=== PATIENT | male | born 1975 | race Hispanic/Latino ===

== ENCOUNTER 2018-09-28 14:36 | Inpatient (IN) | payer MEDICAID ==
[2018-09-28] MEDS ORDERED: Sodium Chloride 0.9% 1,000 ML IV STA ×3 (15:15→20:15)
--- NOTE | 2018-09-28 15:46 | ED PDOC ---
Arrival/HPI - General Historian: Patient - History of Present Illness Narrative History of Present Illness (Text): 09/28/18 15:47 43 year old male with PMH of alcohol abuse presents to the emergency department with sharp epigastric abdominal pain for 1 hour. It's constant, 8/10, no alleviating or worsening factors with no radiation. Pain is associated with coughing up blood, fever, chills, diarrhea. Patient has been drinking 6 beers and 1 pint of hard liquor daily for the past 25 years. He denied prior hospitalization related to alcohol intake. Patient reports dental surgery 1 month ago for tooth extraction and abscess drainage but he still experience dental pain. Time/Duration: 1 hour Symptom Onset: Sudden Symptom Course: Worsening Quality: Stabbing Severity Level: Severe Activities at Onset: Rest Context: Home <Grant Saleh - Last Filed: 09/28/18 15:42> <Alberto Mullins - Last Filed: 09/29/18 08:02> - General Chief Complaint: Chest Pain Time Seen by Provider: 09/28/18 14:58 Past Medical History - Provider Review Nursing Documentation Reviewed: Yes - Travel History Have you recently traveled outside [place] w/in the past 3 mons?: No - Past History Past History: No Previous - Infectious Disease Hx of Infectious Diseases: None - Past Medical History Past Medical History: No Previous - Cardiac Hx Cardiac Disorders: No - Pulmonary Hx Respiratory Disorders: No - Neurological Hx Neurological Disorder: No - HEENT Hx HEENT Disorder: No - Renal Hx Renal Disorder: No - Endocrine/Metabolic Hx Endocrine Disorders: No - Hematological/Oncological Hx Blood Disorders: No - Integumentary Hx Dermatological Disorder: No - Musculoskeletal/Rheumatological Hx Musculoskeletal Disorders: No - Gastrointestinal Hx Gastrointestinal Disorders: No - Genitourinary/Gynecological Hx Genitourinary Disorders: No - Psychiatric Hx Psychophysiologic Disorder: No Hx Substance Use: Yes - Surgical History Hx Orthopedic Surgery: Yes Other/Comment: dental surgery - Anesthesia Hx Anesthesia: Yes Hx Anesthesia Reactions: No Hx Malignant Hyperthermia: No <Grant Saleh - Last Filed: 09/28/18 15:42> Family/Social History Smoking Status: Heavy Smoker > 10 Cigarettes Daily Hx Alcohol Use: Yes Frequency of alcohol use: Daily Hx Substance Use: Yes Substance used: marijuana <Grant Saleh - Last Filed: 09/28/18 15:42> Family/Social History: Unknown Family HX <Alberto Mullins - Last Filed: 09/29/18 08:02> Allergies/Home Meds <Grant Saleh - Last Filed: 09/28/18 15:42> <Alberto Mullins - Last Filed: 09/29/18 08:02> Allergies/Adverse Reactions: Allergies No Known Allergies Allergy (Verified 09/28/18 15:02) Home Medications: Home Meds Medication Instructions Recorded Confirmed No Known Home Med 09/28/18 09/28/18 Review of Systems - Review of Systems Constitutional: Other (chills). absent: Fatigue, Night Sweats Eyes: absent: Vision Changes ENT: Other (left facial pain, dental pain). absent: Tinnitus, Sore Throat, Sinus Congestion Respiratory: Other (? hemoptysis, "spitting up blood"). absent: SOB, Cough Cardiovascular: absent: Chest Pain, Edema, Calf Pain Gastrointestinal: Nausea. absent: Abdominal Pain, Diarrhea, Hematochezia, Hematemesis Genitourinary Male: absent: Dysuria, Hematuria Musculoskeletal: absent: Back Pain Skin: Cellulitis. absent: Rash Neurological: absent: Headache, Dizziness, Seizure Endocrine: absent: Polyuria Hemo/Lymphatic: absent: Easy Bleeding Psychiatric: absent: Depression <Alberto Mullins - Last Filed: 09/29/18 08:02> Physical Exam Vital Signs Reviewed: Yes Vital Signs Temp Pulse Resp BP Pulse Ox 09/28/18 19:53 60 16 128/54 L 100 09/28/18 19:44 97.4 F L 09/28/18 19:19 81 18 98 09/28/18 15:43 97.0 F L 79 20 134/66 95 Temperature: Afebrile Appearance: Positive for: Uncomfortable Pain Distress: Moderate - Systems Exam Head: Present: Atraumatic, Other (mild pain to left cheeck with no disccrete masses palpated) Pupils: Present: PERRL. No: Pinpoint Extroacular Muscles: Present: EOMI Conjunctiva: Present: Injected Ears: No: Erythema Mouth: Present: Other (poor dentition, tendernee and swelling to left buccal region). No: Drooling, Trismus, Normal Lips, Normal Teeth Pharnyx: No: ERYTHEMA, EXUDATE, TONSILS ENLARGED, Peritonsilar Swelling, Uvular Deviation, Muffled/Hoarse Voice, Strider, Soft Palate/Uvular Edema Nose (External): Present: Atraumatic Neck: Present: Normal Range of Motion, Lymphadenopathy, Trachea Midline. No: MIDLINE TENDERNESS Respiratory/Chest: Present: Clear to Auscultation. No: Accessory Muscle Use Cardiovascular: Present: Regular Rate and Rhythm, Murmurs Abdomen: No: Tenderness, Peritoneal Signs, Rebound, Guarding Rectal: No: Gross Blood Back: No: CVA Tenderness, Midline Tenderness Upper Extremity: No: Cyanosis, Edema Lower Extremity: No: Edema, CALF TENDERNESS Neurological: Present: GCS=15, Speech Normal, Motor Func Grossly Intact, Normal Sensory Function Skin: Present: Warm Psychiatric: Present: Alert, Oriented x 3, Normal Insight, Normal Concentration, Normal Affect. No: Suicidal Ideation <Alberto Mullins - Last Filed: 09/29/18 08:02> Medical Decision Making - RAD Interpretation Radiology Orders: 09/28/18 15:14 CHEST PORTABLE [RAD] Stat - Medication Orders Current Medication Orders: Sodium Chloride (Sodium Chloride 0.9%) 1,000 mls @ 1,000 mls/hr IV .Q1H STA Stop: 09/28/18 16:14 Discontinued Medications Ondansetron HCl (Zofran Inj) 4 mg IVP ONCE ONE Stop: 09/28/18 15:16 Pantoprazole Sodium (Protonix Inj) 40 mg IVP ONCE STA Stop: 09/28/18 15:16 <Grant Saleh - Last Filed: 09/28/18 15:42> ED Course and Treatment: 09/28/18 21:00 Patient seen and evaluated with medical practice administrator. On exam, he denies chest pain or shortness of breath. Not hypoxic. Lungs clear. He "spit up blood". On exam there is no active bleeding noted, abdomen is soft and nontender. No melena or dark stools noted. He admits to drinking alcohol daily. With serial exams his abdomen is soft and nontender. Not tachycardic, mildly tremulous. Afebrile. He has tenderness to left ororphyarnx with no purulence noted although prior hx reported of "facial infection". No meningeal signs or headache noted. Will initiate iv antibiotics for possible facial infection, as left buccal pain noted and prior hx of dental pain and infection as per patient, we will obtain ct maxillofacial which we will endorse follow-up to admitting team. Case d/w Dr. Jacinto who accepts case to hospitalist service and to follow-up ct findings. With serial exams, NO hematemesis witnessed in ED, lungs are clear. HE DENIES CHEST PAIN OR SHORTNESS OF BREATH TO ME. On re-exam, NO abdominal pain. He is at risk for alcohol withdrawal. IV fluids and librium ordered. - Lab Interpretations Lab Results: pO2 26 mm/Hg (30-55) L 09/28/18 15:45 VBG pH 7.48 (7.32-7.43) H 09/28/18 15:45 VBG pCO2 40.0 (40-60) 09/28/18 15:45 VBG HCO3 29.8 mmol/l (21-28) H 09/28/18 15:45 VBG Total CO2 31.0 mmol.L (22-28) H 09/28/18 15:45 VBG O2 Sat (Calc) 61.8 % (40-65) 09/28/18 15:45 VBG Base Excess 5.8 mmol/L (0.0-2.0) H 09/28/18 15:45 VBG Potassium 4.2 mmol/L (3.6-5.2) 09/28/18 15:45 Sodium 134.0 mmol/L (132-148) 09/28/18 15:45 Chloride 99.0 mmol/L (98-107) 09/28/18 15:45 Glucose 180 mg/dl (75-110) H 09/28/18 15:45 Lactate 1.6 mmol/L (0.7-2.1) 09/28/18 15:45 FiO2 21.0 % 09/28/18 15:45 PT 10.2 SECONDS (9.4-12.5) 09/28/18 15:40 INR 0.92 09/28/18 15:40 APTT 30.8 Seconds (26.9-38.3) 09/28/18 15:40 Troponin I < 0.01 ng/mL 09/28/18 15:40 Total Bilirubin 0.4 mg/dL (0.2-1.3) 09/28/18 15:40 AST 37 U/L (17-59) 09/28/18 15:40 ALT 15 U/L (7-56) 09/28/18 15:40 Alkaline Phosphatase 85 U/L (38-126) 09/28/18 15:40 Total Protein 8.1 g/dL (5.8-8.3) 09/28/18 15:40 Albumin 4.5 g/dL (3.0-4.8) 09/28/18 15:40 Globulin 3.6 gm/dL 09/28/18 15:40 Albumin/Globulin Ratio 1.3 (1.1-1.8) 09/28/18 15:40 Amylase 63 U/L (35-125) 09/28/18 15:40 Lipase 139 U/L (23-300) 09/28/18 15:40 Urine Color Light yellow (YELLOW) 09/28/18 17:15 Urine Appearance Clear (CLEAR) 09/28/18 17:15 Urine pH 7.0 (4.7-8.0) 09/28/18 17:15 Ur Specific [place] 1.015 (1.005-1.035) 09/28/18 17:15 Urine Protein Negative mg/dL (<30 mg/dL) 09/28/18 17:15 Urine Glucose (UA) Negative mg/dL (NEGATIVE) 09/28/18 17:15 Urine Ketones Trace mg/dL (NEGATIVE) H 09/28/18 17:15 Urine Blood Negative (NEGATIVE) 09/28/18 17:15 Urine Nitrate Negative (NEGATIVE) 09/28/18 17:15 Urine Bilirubin Negative (NEGATIVE) 09/28/18 17:15 Urine Urobilinogen 0.2 E.U./dL (<1 E.U./dL) 09/28/18 17:15 Ur Leukocyte Esterase Negative Radha/uL (NEGATIVE) 09/28/18 17:15 - RAD Interpretation Radiology Orders: 09/28/18 15:14 CHEST PORTABLE [RAD] Stat 09/28/18 19:37 MAXILLOFACIAL W/O CONTRAST [CT] Stat - Medication Orders Current Medication Orders: Vancomycin HCl 1.5 gm/ Sodium (Chloride) 500 mls @ 167 mls/hr IVPB ONCE ONE; Protocol Stop: 09/28/18 23:09 Magnesium Sulfate (Magnesium Sulfate 2 Gm/50 Ml Water) 2 gm in 50 mls @ 50 mls/hr IV ONCE ONE Stop: 09/28/18 21:44 Multivitamins/Vitamin C 10 ml/Thiamine HCl 100 mg/ Folic Acid 1 mg/ Sodium Chloride 1,011.2 mls @ 1,000 mls/hr IV .Q1H1M ONE Stop: 09/28/18 21:44 Discontinued Medications Chlordiazepoxide (Librium) 25 mg PO STAT STA; Protocol Stop: 09/28/18 19:54 Last Admin: 09/28/18 20:10 Dose: 25 mg Sodium Chloride (Sodium Chloride 0.9%) 1,000 mls @ 1,000 mls/hr IV .Q1H STA Stop: 09/28/18 16:14 Last Admin: 09/28/18 16:00 Dose: 1,000 mls/hr eMAR Start Stop Document 09/28/18 16:00 SS (Rec: 09/28/18 16:00 SS [id number]) Intravenous Solution Start Date 09/28/18 Start Time 16:00 End Date 09/28/18 End time 17:00 Total Infusion Time 60 Sodium Chloride (Sodium Chloride 0.9%) 1,000 mls @ 999 mls/hr IV .Q1H1M STA Stop: 09/28/18 18:22 Last Admin: 09/28/18 17:25 Dose: 999 mls/hr eMAR Start Stop Document 09/28/18 17:25 SS (Rec: 09/28/18 17:25 SS [id number]) Intravenous Solution Start Date 09/28/18 Start Time 17:25 End Date 09/28/18 End time 18:25 Total Infusion Time 60 Ceftriaxone Sodium (Rocephin 1 Gram Ivpb) 1 gm in 100 mls @ 200 mls/hr IVPB ONCE STA; Protocol Stop: 09/28/18 20:05 Last Admin: 09/28/18 20:08 Dose: 200 mls/hr eMAR Start Stop Document 09/28/18 20:08 EB (Rec: 09/28/18 20:10 EB [id number]) Intravenous Solution Start Date 09/28/18 Start Time 20:10 Ondansetron HCl (Zofran Inj) 4 mg IVP ONCE ONE Stop: 09/28/18 15:16 Last Admin: 09/28/18 16:00 Dose: 4 mg IVP Administration Document 09/28/18 16:00 SS (Rec: 09/28/18 16:00 SS [id number]) Charges for Administration # of IVP Administrations 1 Ondansetron HCl (Zofran Inj) 4 mg IVP STAT STA Stop: 09/28/18 17:23 Last Admin: 09/28/18 17:25 Dose: 4 mg IVP Administration Document 09/28/18 17:25 SS (Rec: 09/28/18 17:25 SS [id number]) Charges for Administration # of IVP Administrations 1 Pantoprazole Sodium (Protonix Inj) 40 mg IVP ONCE STA Stop: 09/28/18 15:16 Last Admin: 09/28/18 16:00 Dose: 40 mg IVP Administration Document 09/28/18 16:00 SS (Rec: 09/28/18 16:00 SS [id number]) Charges for Administration # of IVP Administrations 1 <Alberto Mullins - Last Filed: 09/29/18 08:02> Disposition/Present on Arrival - Present on Arrival History of DVT/PE: No History of Uncontrolled Diabetes: No Urinary Catheter: No History of Decub. Ulcer: No History Surgical Site Infection Following: None <Grant Saleh - Last Filed: 09/28/18 15:42> - Present on Arrival Any Indicators Present on Arrival: No - Disposition Have Diagnosis and Disposition been Completed?: Yes Disposition Time: 19:45 Patient Plan: Admission, Telemetry <Alberto Mullins - Last Filed: 09/29/18 08:02> - Disposition Diagnosis: Alcohol withdrawal, Cellulitis, Facial pain Disposition: HOSPITALIZED Patient Problems: Current Active Problems Problem Status Onset Alcohol withdrawal Acute Cellulitis Acute Facial pain Acute Condition: FAIR
--- NOTE | 2018-09-28 15:50 | RAD ---
Date of service: 09/28/2018 HISTORY: chest pain COMPARISON: No prior. FINDINGS: LUNGS: No active pulmonary disease. PLEURA: No significant pleural effusion identified, no pneumothorax apparent. CARDIOVASCULAR: No aortic atherosclerotic calcification present. Normal cardiac size. No pulmonary vascular congestion. OSSEOUS STRUCTURES: No significant abnormalities. VISUALIZED UPPER ABDOMEN: Normal. OTHER FINDINGS: None. IMPRESSION: No active disease.
[2018-09-28 15:53] LABS: BASO # 0.03 K/mm3 (0.0-2.0); BASO % 0.3 % (0.0-3.0); EOS # 0.1 (0.0-0.7); EOS % 1.2 % (1.5-5.0); HEMOGLOBIN 14.9 g/dL (14.0-18.0); LYMPH # 1.4 (1.2-3.4); LYMPH % 12.7 % (22.0-35.0); MEAN CELL VOLUME 94.3 fl (80.0-105.0); MEAN CORPUSCULAR HEMOGLOBIN 32.6 pg (25.0-35.0); MEAN CORPUSCULAR HGB CONC 34.6 g/dl (31.0-37.0); MEAN PLATELET VOLUME 9.8 fl (7.0-11.0); MONO # 0.9 (0.1-0.6); RBC 4.57 10^6/uL (3.5-6.1); RED CELL DISTRIBUTION WIDTH 12.6 % (11.5-14.5)
[2018-09-28 15:57] LABS: VENOUS BLOOD GAS BASE EXCESS 5.8 mmol/L (0.0-2.0); VENOUS BLOOD GAS PO2 26 mm/Hg (30-55); VENOUS BLOOD PH 7.48 (7.32-7.43)
[2018-09-28 16:02] LABS: INR 0.92; PARTIAL THROMBOPLASTIN TIME 30.8 Seconds (26.9-38.3); PROTHROMBIN TIME 10.2 SECONDS (9.4-12.5)
[2018-09-28 16:05] LABS: ACETAMINOPHEN < 10.0 ug/ml (10.0-20.0); SALICYLATE < 1 mg/dL (2.0-20.0)
[2018-09-28 16:06] LABS: ALB/GLOB RATIO 1.3 (1.1-1.8); ALBUMIN 4.5 g/dL (3.0-4.8); ALT/SGPT 15 U/L (7-56); AMYLASE 63 U/L (35-125); AST/SGOT 37 U/L (17-59); BLOOD UREA NITROGEN 14 mg/dL (7-21); CALCIUM 10.6 mg/dL (8.4-10.5); GFR NON-AFRICAN AMERICAN > 60; LIPASE 139 U/L (23-300)
[2018-09-28 16:16] LABS: TROPONIN I < 0.01 ng/mL
[2018-09-28 17:22] LABS: URINE BILIRUBIN NEGATIVE (NEGATIVE); URINE BLOOD NEGATIVE (NEGATIVE); URINE GLUCOSE (UA) NEGATIVE (NEGATIVE); URINE LEUKOCYTE ESTERASE NEGATIVE Leu/uL (NEGATIVE); URINE PROTEIN NEGATIVE mg/dL (<30 mg/dL); URINE UROBILINOGEN 0.2 E.U./dL (<1 E.U./dL)
[2018-09-28 17:24] LABS: URINE APPEARANCE CLEAR (CLEAR); URINE COLOR LIGHT YELLOW (YELLOW)
[2018-09-28 17:42] LABS: BARBITURATES, UR NEGATIVE (NEGATIVE); BENZODIAZEPINES, UR NEGATIVE (NEGATIVE); OPIATES, UR NEGATIVE (NEGATIVE); PHENCYCLIDINE, UR NEGATIVE (NEGATIVE)
[2018-09-28] MEDS ORDERED: cefTRIAXone 1 gm 1 GM/100 ML BAG IVPB STA (19:36)
[2018-09-28] MEDS ORDERED: Vancomycin 1.5 GM in Sodium Chloride 0.9% 500 ML IVPB ONE (20:10)
[2018-09-28] MEDS ORDERED: Magnesium Sulfate 2 GM in Sodium Chloride 0.9% 100 ML IV ONE (20:15)
[2018-09-28] MEDS ORDERED: Multivitamin (MVI) 10 ML, Thiamine 100 MG, Folic Acid 1 MG in Sodium Chloride 0.9% 1,00... IV ONE (20:44)
[2018-09-28] MEDS ORDERED: Magnesium Sulfate 2 gm/50 ml 2 GM/50 ML BAG IV ONE (20:45)
--- NOTE | 2018-09-28 21:26 | CP.PCM.HP ---
<Kyle Kirby - Last Filed: 09/28/18 22:19> History of Present Illness - History of Present Illness History of Present Illness: Resident History & Physical for Hospitalist Service Patient is a 43 year old with past medical history of polysubstance abuse presenting with chief complaint of mouth pain which began about one month prior. Patient [place] dental [place] [facility] [place] since then the pain in his left jaw has been constant. He also admits to dizziness, chills, nausea, diaphoresis, and diarrhea. Patient last insufflated cocaine a few days ago and last alcoholic drink was this morning. He has had poor oral intake for the past month due to his mouth pain. Denies chest pain, shortness of breath, fever, abdominal pain, dysuria. PMH: polysubstance abuse PSH: denies SHx: 1/2 pint liquor every day for the past 25 years, occasional cocaine and marijuana use, daily smoker FHx: denies Allergies: NKDA PMD: none Present on Admission - Present on Admission Any Indicators Present on Admission: No Review of Systems - Review of Systems All systems: reviewed and no additional remarkable complaints except (as stated in HPI) Past Patient History - Infectious Disease Hx of Infectious Diseases: None - Past Social History Smoking Status: Heavy Smoker > 10 Cigarettes Daily - CARDIAC Hx Cardiac Disorders: No - PULMONARY Hx Respiratory Disorders: No - NEUROLOGICAL Hx Neurological Disorder: No - HEENT Hx HEENT Problems: No - RENAL Hx Chronic Kidney Disease: No - ENDOCRINE/METABOLIC Hx Endocrine Disorders: No - HEMATOLOGICAL/ONCOLOGICAL Hx Blood Disorders: No - INTEGUMENTARY Hx Dermatological Problems: No - MUSCULOSKELETAL/RHEUMATOLOGICAL Hx Musculoskeletal Disorders: No - GASTROINTESTINAL Hx Gastrointestinal Disorders: No - GENITOURINARY/GYNECOLOGICAL Hx Genitourinary Disorders: No - PSYCHIATRIC Hx Psychophysiologic Disorder: No Hx Substance Use: Yes - SURGICAL HISTORY Hx Orthopedic Surgery: Yes Other/Comment: dental surgery - ANESTHESIA Hx Anesthesia: Yes Hx Anesthesia Reactions: No Hx Malignant Hyperthermia: No Meds Allergies/Adverse Reactions: Allergies Allergy/AdvReac Type Severity Reaction Status Date / Time No Known Allergies Allergy Verified 09/28/18 15:02 Physical Exam - Constitutional Appears: No Acute Distress, Unkempt - Head Exam Head Exam: ATRAUMATIC, NORMOCEPHALIC - Eye Exam Eye Exam: EOMI, Normal appearance, PERRL - ENT Exam ENT Exam: Mucous Membranes Moist, Normal External Ear Exam Additional comments: poor dentition abscess in left buccal region with no drainage, tender to palpation - Respiratory Exam Respiratory Exam: Clear to Auscultation Bilateral, NORMAL BREATHING PATTERN. absent: Rales, Rhonchi, Wheezes, Respiratory Distress - Cardiovascular Exam Cardiovascular Exam: REGULAR RHYTHM, +S1, +S2. absent: Systolic Murmur - GI/Abdominal Exam GI & Abdominal Exam: Soft. absent: Guarding, Mass, Rebound, Rigid, Tenderness - Extremities Exam Extremities exam: Positive for: normal capillary refill, normal inspection, pedal pulses present. Negative for: pedal edema, tenderness - Neurological Exam Neurological exam: Alert, CN II-XII Intact, Oriented x3 - Skin Skin Exam: Dry, Intact, Normal Color, Warm Results - Vital Signs Recent Vital Signs: Last Vital Signs Temp 97.4 F L 09/28/18 19:44 Pulse 60 09/28/18 19:53 Resp 16 09/28/18 19:53 BP 128/54 L 09/28/18 19:53 Pulse Ox 100 09/28/18 19:53 - Labs Result Diagrams: 09/28/18 15:40 09/28/18 15:40 Labs: Laboratory Results - last 24 hr 09/28/18 09/28/18 09/28/18 15:40 15:40 15:40 WBC 11.0 RBC 4.57 Hgb 14.9 Hct 43.1 MCV 94.3 MCH 32.6 MCHC 34.6 RDW 12.6 Plt Count 274 MPV 9.8 Neut % (Auto) 77.8 H Lymph % (Auto) 12.7 L Young % (Auto) 8.0 H Eos % (Auto) 1.2 L Baso % (Auto) 0.3 Lymph # (Auto) 1.4 Young # (Auto) 0.9 H Eos # (Auto) 0.1 Baso # (Auto) 0.03 Absolute Neuts (auto) 8.53 H PT 10.2 INR 0.92 APTT 30.8 pO2 VBG pH VBG pCO2 VBG HCO3 VBG Total CO2 VBG O2 Sat (Calc) VBG Base Excess VBG Potassium Glucose Lactate FiO2 Sodium 136 Potassium 4.4 Chloride 97 L Carbon Dioxide 28 Anion Gap 15 BUN 14 Creatinine 0.5 L Est GFR ( Amer) > 60 Est GFR (Non-Af Amer) > 60 Random Glucose 175 H Calcium 10.6 H Magnesium 1.6 L Total Bilirubin 0.4 AST 37 ALT 15 Alkaline Phosphatase 85 Lactate Dehydrogenase 463 Total Creatine Kinase 66 Troponin I < 0.01 Total Protein 8.1 Albumin 4.5 Globulin 3.6 Albumin/Globulin Ratio 1.3 Amylase 63 Lipase 139 Venous Blood Potassium Urine Color Urine Appearance Urine pH Ur Specific Downing Urine Protein Urine Glucose (UA) Urine Ketones Urine Blood Urine Nitrate Urine Bilirubin Urine Urobilinogen Ur Leukocyte Esterase Salicylates Urine Opiates Screen Urine Methadone Screen Acetaminophen Ur Barbiturates Screen Ur Phencyclidine Scrn Ur Amphetamines Screen U Benzodiazepines Scrn U Oth Cocaine Metabols U Cannabinoids Screen Alcohol, Quantitative Influenza Typ A,B (EIA) 09/28/18 09/28/18 09/28/18 15:40 15:40 15:40 WBC RBC Hgb Hct MCV MCH MCHC RDW Plt Count MPV Neut % (Auto) Lymph % (Auto) Young % (Auto) Eos % (Auto) Baso % (Auto) Lymph # (Auto) Young # (Auto) Eos # (Auto) Baso # (Auto) Absolute Neuts (auto) PT INR APTT pO2 VBG pH VBG pCO2 VBG HCO3 VBG Total CO2 VBG O2 Sat (Calc) VBG Base Excess VBG Potassium Glucose Lactate FiO2 Sodium Potassium Chloride Carbon Dioxide Anion Gap BUN Creatinine Est GFR ( Amer) Est GFR (Non-Af Amer) Random Glucose Calcium Magnesium Total Bilirubin AST ALT Alkaline Phosphatase Lactate Dehydrogenase Total Creatine Kinase Troponin I Total Protein Albumin Globulin Albumin/Globulin Ratio Amylase Lipase Venous Blood Potassium Urine Color Urine Appearance Urine pH Ur Specific Downing Urine Protein Urine Glucose (UA) Urine Ketones Urine Blood Urine Nitrate Urine Bilirubin Urine Urobilinogen Ur Leukocyte Esterase Salicylates < 1 L Urine Opiates Screen Urine Methadone Screen Acetaminophen < 10.0 L Ur Barbiturates Screen Ur Phencyclidine Scrn Ur Amphetamines Screen U Benzodiazepines Scrn U Oth Cocaine Metabols U Cannabinoids Screen Alcohol, Quantitative < 10 Influenza Typ A,B (EIA) Negative for flu a/b 09/28/18 09/28/18 09/28/18 15:45 17:15 17:15 WBC RBC Hgb Hct MCV MCH MCHC RDW Plt Count MPV Neut % (Auto) Lymph % (Auto) Young % (Auto) Eos % (Auto) Baso % (Auto) Lymph # (Auto) Young # (Auto) Eos # (Auto) Baso # (Auto) Absolute Neuts (auto) PT INR APTT pO2 26 L VBG pH 7.48 H VBG pCO2 40.0 VBG HCO3 29.8 H VBG Total CO2 31.0 H VBG O2 Sat (Calc) 61.8 VBG Base Excess 5.8 H VBG Potassium 4.2 Glucose 180 H Lactate 1.6 FiO2 21.0 Sodium 134.0 Potassium Chloride 99.0 Carbon Dioxide Anion Gap BUN Creatinine Est GFR ( Amer) Est GFR (Non-Af Amer) Random Glucose Calcium Magnesium Total Bilirubin AST ALT Alkaline Phosphatase Lactate Dehydrogenase Total Creatine Kinase Troponin I Total Protein Albumin Globulin Albumin/Globulin Ratio Amylase Lipase Venous Blood Potassium 4.2 Urine Color Light yellow Urine Appearance Clear Urine pH 7.0 Ur Specific Downing 1.015 Urine Protein Negative Urine Glucose (UA) Negative Urine Ketones Trace H Urine Blood Negative Urine Nitrate Negative Urine Bilirubin Negative Urine Urobilinogen 0.2 Ur Leukocyte Esterase Negative Salicylates Urine Opiates Screen Negative Urine Methadone Screen Negative Acetaminophen Ur Barbiturates Screen Negative Ur Phencyclidine Scrn Negative Ur Amphetamines Screen Negative U Benzodiazepines Scrn Negative U Oth Cocaine Metabols Positive H U Cannabinoids Screen Positive H Alcohol, Quantitative Influenza Typ A,B (EIA) Assessment & Plan - Assessment and Plan (Free Text) Assessment: Patient is a 43 year old with past medical history of polysubstance abuse presenting with dental abscess and alcohol withdrawal. Plan: Dental abscess - afebrile, no leukocytosis - ENT and ID consulted. Appreciate recs. - Zosyn 3.375 gm IV Q8H - Vancomycin 1.5 gm IV given - followup maxillofacial CT - blood, urine, abscess cultures - procalcitonin Alcohol withdrawal - Alcohol level <10 - Librium 25 mg PO Q8 - Ativan 2 mg IVP Q4H PRN - CIWA protocol - Neurochecks - Aspiration, seizure, fall precautions - MVI/folic acid/thiamine daily - avoid Zofran d/t QTc prolongation on EKG Polysubstance abuse - UDS positive for cocaine, cannabinoids - hepatitis panel - cessation counseling - nicotine patch Hyperglycemia - Hgba1c - ISS, Accuchecks Hypercalcemia - NS bolus - continue to monitor Hypomagnesemia - 2 grams magnesium sulfate IV given - continue to monitor and replete PPX - Protonix, SCDs Case discussed with Dr. Orville Kirby PGY-1 - Date & Time Date: 09/28/18 Time: 00:20 <Nai Jacinto - Last Filed: 09/29/18 06:21> Results - Vital Signs Recent Vital Signs: Last Vital Signs Temp 97.4 F L 09/28/18 19:44 Pulse 77 09/28/18 23:24 Resp 18 09/29/18 02:50 BP 118/69 09/28/18 23:24 Pulse Ox 98 09/28/18 23:24 - Labs Result Diagrams: 09/28/18 15:40 09/28/18 15:40 Labs: Laboratory Results - last 24 hr 09/28/18 09/28/18 09/28/18 15:40 15:40 15:40 WBC 11.0 RBC 4.57 Hgb 14.9 Hct 43.1 MCV 94.3 MCH 32.6 MCHC 34.6 RDW 12.6 Plt Count 274 MPV 9.8 Neut % (Auto) 77.8 H Lymph % (Auto) 12.7 L Young % (Auto) 8.0 H Eos % (Auto) 1.2 L Baso % (Auto) 0.3 Lymph # (Auto) 1.4 Young # (Auto) 0.9 H Eos # (Auto) 0.1 Baso # (Auto) 0.03 Absolute Neuts (auto) 8.53 H PT 10.2 INR 0.92 APTT 30.8 pO2 VBG pH VBG pCO2 VBG HCO3 VBG Total CO2 VBG O2 Sat (Calc) VBG Base Excess VBG Potassium Glucose Lactate FiO2 Sodium 136 Potassium 4.4 Chloride 97 L Carbon Dioxide 28 Anion Gap 15 BUN 14 Creatinine 0.5 L Est GFR ( Amer) > 60 Est GFR (Non-Af Amer) > 60 Random Glucose 175 H Calcium 10.6 H Magnesium 1.6 L Total Bilirubin 0.4 AST 37 ALT 15 Alkaline Phosphatase 85 Lactate Dehydrogenase 463 Total Creatine Kinase 66 Troponin I < 0.01 Total Protein 8.1 Albumin 4.5 Globulin 3.6 Albumin/Globulin Ratio 1.3 Amylase 63 Lipase 139 Venous Blood Potassium Urine Color Urine Appearance Urine pH Ur Specific Downing Urine Protein Urine Glucose (UA) Urine Ketones Urine Blood Urine Nitrate Urine Bilirubin Urine Urobilinogen Ur Leukocyte Esterase Salicylates Urine Opiates Screen Urine Methadone Screen Acetaminophen Ur Barbiturates Screen Ur Phencyclidine Scrn Ur Amphetamines Screen U Benzodiazepines Scrn U Oth Cocaine Metabols U Cannabinoids Screen Alcohol, Quantitative Influenza Typ A,B (EIA) 09/28/18 09/28/18 09/28/18 15:40 15:40 15:40 WBC RBC Hgb Hct MCV MCH MCHC RDW Plt Count MPV Neut % (Auto) Lymph % (Auto) Young % (Auto) Eos % (Auto) Baso % (Auto) Lymph # (Auto) Young # (Auto) Eos # (Auto) Baso # (Auto) Absolute Neuts (auto) PT INR APTT pO2 VBG pH VBG pCO2 VBG HCO3 VBG Total CO2 VBG O2 Sat (Calc) VBG Base Excess VBG Potassium Glucose Lactate FiO2 Sodium Potassium Chloride Carbon Dioxide Anion Gap BUN Creatinine Est GFR ( Amer) Est GFR (Non-Af Amer) Random Glucose Calcium Magnesium Total Bilirubin AST ALT Alkaline Phosphatase Lactate Dehydrogenase Total Creatine Kinase Troponin I Total Protein Albumin Globulin Albumin/Globulin Ratio Amylase Lipase Venous Blood Potassium Urine Color Urine Appearance Urine pH Ur Specific Downing Urine Protein Urine Glucose (UA) Urine Ketones Urine Blood Urine Nitrate Urine Bilirubin Urine Urobilinogen Ur Leukocyte Esterase Salicylates < 1 L Urine Opiates Screen Urine Methadone Screen Acetaminophen < 10.0 L Ur Barbiturates Screen Ur Phencyclidine Scrn Ur Amphetamines Screen U Benzodiazepines Scrn U Oth Cocaine Metabols U Cannabinoids Screen Alcohol, Quantitative < 10 Influenza Typ A,B (EIA) Negative for flu a/b 09/28/18 09/28/18 09/28/18 15:45 17:15 17:15 WBC RBC Hgb Hct MCV MCH MCHC RDW Plt Count MPV Neut % (Auto) Lymph % (Auto) Young % (Auto) Eos % (Auto) Baso % (Auto) Lymph # (Auto) Young # (Auto) Eos # (Auto) Baso # (Auto) Absolute Neuts (auto) PT INR APTT pO2 26 L VBG pH 7.48 H VBG pCO2 40.0 VBG HCO3 29.8 H VBG Total CO2 31.0 H VBG O2 Sat (Calc) 61.8 VBG Base Excess 5.8 H VBG Potassium 4.2 Glucose 180 H Lactate 1.6 FiO2 21.0 Sodium 134.0 Potassium Chloride 99.0 Carbon Dioxide Anion Gap BUN Creatinine Est GFR ( Amer) Est GFR (Non-Af Amer) Random Glucose Calcium Magnesium Total Bilirubin AST ALT Alkaline Phosphatase Lactate Dehydrogenase Total Creatine Kinase Troponin I Total Protein Albumin Globulin Albumin/Globulin Ratio Amylase Lipase Venous Blood Potassium 4.2 Urine Color Light yellow Urine Appearance Clear Urine pH 7.0 Ur Specific Downing 1.015 Urine Protein Negative Urine Glucose (UA) Negative Urine Ketones Trace H Urine Blood Negative Urine Nitrate Negative Urine Bilirubin Negative Urine Urobilinogen 0.2 Ur Leukocyte Esterase Negative Salicylates Urine Opiates Screen Negative Urine Methadone Screen Negative Acetaminophen Ur Barbiturates Screen Negative Ur Phencyclidine Scrn Negative Ur Amphetamines Screen Negative U Benzodiazepines Scrn Negative U Oth Cocaine Metabols Positive H U Cannabinoids Screen Positive H Alcohol, Quantitative Influenza Typ A,B (EIA) Attending/Attestation - Attestation I have personally seen and examined this patient.: Yes I have fully participated in the care of the patient.: Yes I have reviewed all pertinent clinical information: Yes
[2018-09-28] MEDS: Piperacillin/Tazobact 3.375 gm 100 ML IVPB SCH (23:00)
[2018-09-29 02:53] VITALS: BMI 19.8
[2018-09-29] MEDS: Piperacillin/Tazobact 3.375 gm 100 ML IVPB SCH ×2 (05:42→22:26)
[2018-09-29 06:38] LABS: BASO # 0.01 K/mm3 (0.0-2.0); BASO % 0.1 % (0.0-3.0); EOS # 0.3 (0.0-0.7); EOS % 2.5 % (1.5-5.0); LYMPH # 2.3 (1.2-3.4); LYMPH % 20.3 % (22.0-35.0); MEAN CELL VOLUME 95.2 fl (80.0-105.0); MEAN CORPUSCULAR HEMOGLOBIN 32.4 pg (25.0-35.0); MEAN PLATELET VOLUME 10.1 fl (7.0-11.0); MONO # 1.1 (0.1-0.6); MONO % 9.4 % (1.0-6.0); RBC 4.63 10^6/uL (3.5-6.1); RED CELL DISTRIBUTION WIDTH 12.7 % (11.5-14.5); WHITE BLOOD COUNT 11.3 10^3/uL (4.5-11.0)
[2018-09-29 07:15] LABS: ALB/GLOB RATIO 1.2 (1.1-1.8); ALBUMIN 3.8 g/dL (3.0-4.8); ALT/SGPT 20 U/L (7-56); AST/SGOT 38 U/L (17-59); BLOOD UREA NITROGEN 11 mg/dL (7-21); CALCIUM 9.1 mg/dL (8.4-10.5); GFR NON-AFRICAN AMERICAN > 60
--- NOTE | 2018-09-29 08:14 | CARD ---
APPROVED REPORT Date of service: 09/28/2018 EKG Measurement Heart [id number] <Conclusion> Normal sinus rhythm Incomplete right bundle branch block Prolonged QT Abnormal ECG
--- NOTE | 2018-09-29 08:44 | CT ---
Date of service: 09/28/2018 PROCEDURE: CT MAXILLOFACIAL BONES WITHOUT CONTRAST HISTORY: left facial pain/cellulitis COMPARISON: None available. TECHNIQUE: Contiguous axial CT images of the maxillofacial bones were obtained. Coronal and sagittal reformats were generated. Radiation dose: Total exam DLP = 812.82 mGy-cm. This CT exam was performed using one or more of the following dose reduction techniques: Automated exposure control, adjustment of the mA and/or kV according to patient size, and/or use of iterative reconstruction technique. FINDINGS: NASAL BONES: Unremarkable. ORBITS: Unremarkable. PARANASAL SINUSES/ MASTOIDS: Clear. MAXILLA: Unremarkable. MANDIBLE/ TEMPOROMANDIBULAR JOINTS: Periodontal lucencies are seen in the posterior mandible bilaterally. No evidence of abscess SKULL BASE: Unremarkable. TEMPORAL BONES: Middle ears and mastoid grossly unremarkable. OTHER FINDINGS: The report concurs with the preliminary [employer] report IMPRESSION: Periodontal lucencies are seen in the posterior mandible bilaterally. No evidence of abscess
[2018-09-29] MEDS: Vancomycin 750mg 750 MG/250 ML BAG IVPB SCH ×2 (09:15→18:10)
--- NOTE | 2018-09-29 09:48 | CP.PCM.PN ---
<Jarrett Leavitt - Last Filed: 09/29/18 15:34> Subjective - Date & Time of Evaluation Date of Evaluation: 09/29/18 Time of Evaluation: 08:00 - Subjective Subjective: Jarrett Leavitt, PGY1 Medicine Progress Note for Dr. Cramer Patient was seen and examined at bedside this morning. Vital signs are stable. Patient states that he still has mouth pain. He has some difficulty swallowing. Sometimes he has difficulty breathing as well. This mouth pain has been going on for x1 month in duration since he had a dental extraction and abscess drainage at [facility] [place]. The pain is in the left jaw. Denies cp, n/v/d, fever, chills, tremors, auditory/visual hallucinations. A full 12 point ROS was conducted and unremarkable except as stated above. Objective - Vital Signs/Intake and Output Vital Signs (last 24 hours): Temp Pulse Resp BP Pulse Ox 98.4 F 81 20 128/80 98 09/29/18 06:00 09/29/18 06:00 09/29/18 06:00 09/29/18 06:00 09/29/18 06:00 Intake and Output: 09/29/18 09/29/18 06:59 18:59 Intake Total 300 Output Total 200 Balance 100 - Medications Medications: Current Medications Chlordiazepoxide (Librium) 25 mg PO Q8 KIA; Protocol Last Admin: 09/29/18 05:42 Dose: 25 mg Folic Acid (Folic Acid) 1 mg IVP DAILY KIA Piperacillin Sod/Tazobactam Sod (Zosyn 3.375 In Ns 100ml) 100 mls @ 25 mls/hr IVPB Q8 KIA; Protocol Stop: 09/29/18 09:59 Last Admin: 09/29/18 05:42 Dose: 25 mls/hr Vancomycin HCl (Vancomycin 750 Mg In Ns) 750 mg in 250 mls @ 167 mls/hr IVPB Q 12H KIA; Protocol Last Admin: 09/29/18 09:15 Dose: 167 mls/hr Lorazepam (Ativan) 2 mg IVP Q4H PRN; Protocol PRN Reason: Symptoms of alcohol withdrawl Last Admin: 09/29/18 05:43 Dose: 2 mg Nicotine (Nicoderm Cq) 1 patch TD DAILY PRN PRN Reason: URGE TO SMOKE Pantoprazole Sodium (Protonix Inj) 40 mg IVP DAILY KIA Last Admin: 09/29/18 09:15 Dose: 40 mg Thiamine HCl (Vitamin B1 Inj) 100 mg IM DAILY [facility] Last Admin: 09/29/18 09:15 Dose: 100 mg - Labs Labs: 09/29/18 06:15 09/29/18 06:15 PT 10.2 SECONDS (9.4-12.5) 09/28/18 15:40 INR 0.92 09/28/18 15:40 APTT 30.8 Seconds (26.9-38.3) 09/28/18 15:40 - Constitutional Appears: No Acute Distress - Head Exam Head Exam: ATRAUMATIC, NORMAL INSPECTION, NORMOCEPHALIC - Eye Exam Eye Exam: EOMI - ENT Exam ENT Exam: Mucous Membranes Moist, Normal Exam Additional comments: Left bucosal lesion about 0bto4wu with inflammation. Left cervical lymphadenopathy. Tender to mild palpation. - Respiratory Exam Respiratory Exam: Clear to Ausculation Bilateral. absent: Rales, Rhonchi, Whee zes - Cardiovascular Exam Cardiovascular Exam: REGULAR RHYTHM, +S1, +S2 - GI/Abdominal Exam GI & Abdominal Exam: Soft, Normal Bowel Sounds. absent: Tenderness - Extremities Exam Extremities Exam: Full ROM, Normal Capillary Refill, Normal Inspection. absent: Joint Swelling, Pedal Edema - Neurological Exam Neurological Exam: Alert, Awake, Oriented x3 Neuro motor strength exam: Left Upper Extremity: 5, Right Upper Extremity: 5, Left Lower Extremity: 5, Right Lower Extremity: 5 - Psychiatric Exam Psychiatric exam: Normal Affect, Normal Mood - Skin Skin Exam: Dry, Intact, Normal Color, Warm Assessment and Plan - Assessment and Plan (Free Text) Assessment: Patient is a 43 year old with past medical history of polysubstance abuse who presented to the ED for mouth pain. Patient admitted for EtOH withdrawal and Mouth Pain 2/2 Recent Dental Abscess. Plan: Mouth Pain 2/2 Recent Dental Abscess - Patient had dental extraction with abscess drainage one month ago in [facility] and never followed up with dentist - Maxillofacial CT (09/29): peridontal lucencies in posterior mandable bilaterally. No evidence of abscess. - Tramadol 25mg PO TID prn for pain control - ENT on consult (Dr. Watts). Follow up recs. - ID on consult (Dr. Amin). Follow up recs. - f/u blood, urine, and wound cx results - afebrile, no leukocytosis - c/w vanco q12 - f/u procalcitonin level EtOH withdrawal - Last CIWA score 1 - discontinued librium - c/w ativan 2 mg IVP Q4H PRN - EtOH level negative - c/w CIWA protocol, aspiration, seizure, fall precautions - MVI/folic acid/thiamine daily - avoid Zofran d/t QTc prolongation on EKG Hx Polysubstance abuse - UDS positive for cocaine, cannabinoids - f/u hepatitis panel - cessation counseling - c/w nicotine patch Hyperglycemia - Hgba1c - ISS, Accuchecks Hypercalcemia - resolved - normal after NS bolus Hypomagnesemia - resolved - s/p 2 grams magnesium sulfate IV given PPX - Protonix, SCDs Dispo: Patient is being monitored on tele. Follow up recommendations from ID and ENT. Case was discussed and reviewed with Attending Physician, Dr. Cramer <Penny Cramer R - Last Filed: 10/01/18 07:04> Objective - Vital Signs/Intake and Output Vital Signs (last 24 hours): Temp Pulse Resp BP Pulse Ox 98.3 F 94 H 20 129/85 95 10/01/18 06:00 10/01/18 06:00 10/01/18 06:00 10/01/18 06:00 10/01/18 06:00 Intake and Output: 10/01/18 10/01/18 06:59 18:59 Intake Total 440 Output Total 1150 Balance -710 - Medications Medications: Current Medications Folic Acid (Folic Acid) 1 mg PO DAILY KIA Last Admin: 09/30/18 09:28 Dose: 1 mg Vancomycin HCl (Vancomycin 750 Mg In Ns) 750 mg in 250 mls @ 167 mls/hr IVPB Q12H KIA; Protocol Last Admin: 09/30/18 05:31 Dose: 167 mls/hr Piperacillin Sod/Tazobactam Sod (Zosyn 3.375 In Ns 100ml) 100 mls @ 25 mls/hr IVPB Q8 KIA; Protocol Last Admin: 10/01/18 05:03 Dose: 25 mls/hr Lorazepam (Ativan) 2 mg IVP Q4H PRN; Protocol PRN Reason: Symptoms of alcohol withdrawl Last Admin: 09/29/18 05:43 Dose: 2 mg Multivitamins (Thera Tab) 1 tab PO 0800 [facility] Nicotine (Nicoderm Cq) 1 patch TD DAILY PRN PRN Reason: URGE TO SMOKE Last Admin: 09/30/18 08:34 Dose: 1 patch Pantoprazole Sodium (Protonix Inj) 40 mg IVP DAILY [facility] Last Admin: 09/30/18 09:20 Dose: 40 mg Thiamine HCl (Vitamin B1 Tab) 100 mg PO DAILY [facility] Last Admin: 09/30/18 09:19 Dose: 100 mg Tramadol HCl (Ultram) 25 mg PO TID PRN PRN Reason: Pain, moderate (4-7) Last Admin: 09/30/18 14:08 Dose: 25 mg - Labs Labs: 09/30/18 07:00 09/30/18 07:00 PT 10.2 SECONDS (9.4-12.5) 09/28/18 15:40 INR 0.92 09/28/18 15:40 APTT 30.8 Seconds (26.9-38.3) 09/28/18 15:40 Attending/Attestation - Attestation I have personally seen and examined this patient.: Yes I have fully participated in the care of the patient.: Yes I have reviewed all pertinent clinical information, including history, physical exam and plan: Yes Notes (Text): Patient seen and examined by me with resident at 11:05AM on 09/29/18. Case including HPI, physical exam, and assessment and plan discussed with resident. Agree with above with following additions/corrections. Patient is 43-year-old male with past medical history significant for polysubstance abuse that presented to the emergency room with a chief complaint of mouth pain that began approximately one month ago. Patient states he feels ok. Complains of pain in his mouth. States pain is in the left back part of his mouth and radiates to this jaw. Pain is constant. Patient denies any nausea, vomiting, or abdominal pain. No headaches or dizziness. No lightheadedness. No chest pain or palpitations. No diarrhea or constipation. No dysuria. Physical exam: General: Awake and alert lying in bed in no acute distress. HEENT: Normocephalic, atraumatic. Extraocular muscles intact, pupils equal and reactive, no scleral icterus. Oropharynx is pink and moist. Poor dentition. Left cheek/jaw with mild edema, tender to palpation. No pharyngeal erythema or exudate appreciated. Neck is supple. Cardiovascular: Normal rhythm. Normal S1 and S2. No murmurs, rubs, or gallops appreciated Pulmonary: Normal respiratory effort. No rhonchi, rales, or wheezing appreciated. Gastrointestinal: Soft, nondistended. Nontender. Positive bowel sounds all 4 quadrants. No guarding. Musculoskeletal: Moves all extremities. No calf tenderness. No edema appreciated. Central nervous system: AAOx3, CN 2-12 grossly intact. Dermatologic: Skin warm and dry. Assessment and plan: Patient is 43-year-old male with past medical history significant for polysubstance abuse that presented to the emergency room with a chief complaint of mouth pain that began approximately one month ago. 1. Mouth pain likely secondary to dental infection. Maxillofacial CT per radiologist showed periodontal lucencies are seen in the posterior mandible bilaterally, no evidence of abscess. Continue Zosyn and Vanco. ID following, recommendations appreciated. Change to oral PO Clindamycin on discharge. ENT consulted, follow up recommendations. Patient afebrile. Mild leukocytosis. Follow up procalcitonin. 2. Alcohol abuse/withdrawal. Continue CIWA protocol. Continue Ativan as needed. Librium stopped. Alcohol level <10. Continue thiamine, folic acid, and multivitamin. Patient counseled at length on cessation. 3. Polysubstance abuse. Patient used cocaine and marijuana. Patient counseled at length on cessation. Monitor for withdrawal symptoms. 4. Tobacco abuse. Counseled on cessation. Continue with nicotine patch. 5. Hypergylcemia. HgbA1C 5.6. Continue to monitor. 6. Hypercalcemia. Resolved. Continue to monitor 7. Hypomagnesemia. Resolved. Continue to monitor. 8. DVT prophylaxis. SCDS and ambulation 9. Patient is a full code. Case discussed in detail with patient regarding current diagnosis and treatment plan. All questions answered.
[2018-09-29] MEDS ORDERED: Thiamine 100 mg/ml Inj IM SCH (10:00)
[2018-09-29 13:03] LABS: HEPATITIS B SURFACE AG Negative (NEGATIVE)
[2018-09-29 13:09] LABS: HEPATITIS A IGM NEGATIVE (NEGATIVE); HEPATITIS B CORE AB NEGATIVE (NEGATIVE)
[2018-09-29 13:20] LABS: HEPATITIS C ANTIBODY NEGATIVE (NEGATIVE)
--- NOTE | 2018-09-29 19:28 | CP.PCM.CON ---
History of Present Illness - History of Present Illness History of Present Illness: This is a 43 yo male with history of tooth extraction ~ 1 month ago. c/o left sided jaw pain / neck tenderness. Presented to ED 09/28/18 c/o persistent pain / abdominal pain. Patient with history of polysubstance abuse. Patient was admitted for alcohol withdrawal / possible dental abscess. CT scan done was negative for abscess. Patient was started on IV antibiotics - states feeling slightly better today. Review of Systems - EENT Nose/Mouth/Throat: Dental Pain, Odynophagia, Neck Pain Past Patient History - Infectious Disease Hx of Infectious Diseases: None - Past Social History Smoking Status: Heavy Smoker > 10 Cigarettes Daily Alcohol: Other (>6 / beers per day / 1 pint hard liquor daily ~ 25 years) Drugs: Cocaine - CARDIAC Hx Cardiac Disorders: No - PULMONARY Hx Respiratory Disorders: No - NEUROLOGICAL Hx Neurological Disorder: No - HEENT Hx HEENT Problems: No - RENAL Hx Chronic Kidney Disease: No - ENDOCRINE/METABOLIC Hx Endocrine Disorders: No - HEMATOLOGICAL/ONCOLOGICAL Hx Blood Disorders: No - INTEGUMENTARY Hx Dermatological Problems: No - MUSCULOSKELETAL/RHEUMATOLOGICAL Hx Falls: No - GASTROINTESTINAL Hx Gastrointestinal Disorders: No - GENITOURINARY/GYNECOLOGICAL Hx Genitourinary Disorders: No - PSYCHIATRIC Hx Substance Use: No Other/Comment: etoh - SURGICAL HISTORY Hx Orthopedic Surgery: Yes - ANESTHESIA Hx Anesthesia: Yes Hx Anesthesia Reactions: No Hx Malignant Hyperthermia: No Meds Allergies/Adverse Reactions: Allergies Allergy/AdvReac Type Severity Reaction Status Date / Time No Known Allergies Allergy Verified 09/28/18 15:02 - Medications Medications: Current Medications Folic Acid (Folic Acid) 1 mg IVP DAILY [facility] Last Admin: 09/29/18 10:23 Dose: 1 mg Vancomycin HCl (Vancomycin 750 Mg In Ns) 750 mg in 250 mls @ 167 mls/hr IVPB Q12H [facility]; Protocol Last Admin: 09/29/18 18:10 Dose: 167 mls/hr Lorazepam (Ativan) 2 mg IVP Q4H PRN; Protocol PRN Reason: Symptoms of alcohol withdrawl Last Admin: 09/29/18 05:43 Dose: 2 mg Nicotine (Nicoderm Cq) 1 patch TD DAILY PRN PRN Reason: URGE TO SMOKE Pantoprazole Sodium (Protonix Inj) 40 mg IVP DAILY [facility] Last Admin: 09/29/18 09:15 Dose: 40 mg Thiamine HCl (Vitamin B1 Inj) 100 mg IM DAILY [facility] Last Admin: 09/29/18 09:15 Dose: 100 mg Tramadol HCl (Ultram) 25 mg PO TID PRN PRN Reason: Pain, moderate (4-7) Physical Exam - Constitutional Appears: Non-toxic, No Acute Distress - Head Exam Head Exam: ATRAUMATIC, NORMOCEPHALIC - Eye Exam Eye Exam: EOMI, Normal appearance, PERRL Pupil Exam: NORMAL ACCOMODATION - Expanded ENT Exam Expanded TM/Canal Exam: Cerumen Impaction: Bilateral Mouth exam: dry mucosa (Nasal exam - erythematous / atrophic mucosa / DNS oral exam - left buccal edema / erythema , no trismus / uvula midline ) Teeth exam: dental caries - Neck Exam Neck exam: Positive for: Lymphadenopathy (Left submandibular node / firm / tender ) - Respiratory Exam Respiratory Exam: NORMAL BREATHING PATTERN - Neurological Exam Neurological exam: Alert, CN II-XII Intact, Oriented x3 - Psychiatric Exam Psychiatric exam: Normal Affect, Normal Mood - Skin Skin Exam: Normal Color, Warm Results - Vital Signs Recent Vital Signs: Last Vital Signs Temp 99 F 09/29/18 12:00 Pulse 78 09/29/18 18:00 Resp 18 09/29/18 12:00 BP 135/91 H 09/29/18 12:00 Pulse Ox 98 09/29/18 06:00 - Labs Result Diagrams: 09/29/18 06:15 09/29/18 06:15 Labs: Laboratory Results - last 24 hr 09/28/18 09/28/18 09/29/18 15:40 15:40 06:15 WBC RBC Hgb Hct MCV MCH MCHC RDW Plt Count MPV Neut % (Auto) Lymph % (Auto) [place] % (Auto) Eos % (Auto) Baso % (Auto) Lymph # (Auto) [place] # (Auto) Eos # (Auto) Baso # (Auto) Absolute Neuts (auto) Sodium Potassium Chloride Carbon Dioxide Anion Gap BUN Creatinine Est GFR ( Amer) Est GFR (Non-Af Amer) Random Glucose Hemoglobin A1c 5.6 Calcium Phosphorus Magnesium Total Bilirubin AST ALT Alkaline Phosphatase Total Protein Albumin Globulin Albumin/Globulin Ratio Procalcitonin 0.10 L Hepatitis A IgM Ab Negative Hep Bs Antigen Negative Hep B Core IgM Ab Negative Hepatitis C Antibody Negative 09/29/18 09/29/18 06:15 06:15 WBC 11.3 H RBC 4.63 Hgb 15.0 Hct 44.1 MCV 95.2 MCH 32.4 MCHC 34.0 RDW 12.7 Plt Count 289 MPV 10.1 Neut % (Auto) 67.7 Lymph % (Auto) 20.3 L [place] % (Auto) 9.4 H Eos % (Auto) 2.5 Baso % (Auto) 0.1 Lymph # (Auto) 2.3 [place] # (Auto) 1.1 H Eos # (Auto) 0.3 Baso # (Auto) 0.01 Absolute Neuts (auto) 7.67 H Sodium 135 Potassium 3.8 Chloride 102 Carbon Dioxide 26 Anion Gap 10 BUN 11 Creatinine 0.5 L Est GFR ( Amer) > 60 Est GFR (Non-Af Amer) > 60 Random Glucose 84 Hemoglobin A1c Calcium 9.1 Phosphorus 3.5 Magnesium 2.2 Total Bilirubin 0.6 AST 38 ALT 20 Alkaline Phosphatase 78 Total Protein 7.0 Albumin 3.8 Globulin 3.2 Albumin/Globulin Ratio 1.2 Procalcitonin Hepatitis A IgM Ab Hep Bs Antigen Hep B Core IgM Ab Hepatitis C Antibody Assessment & Plan (1) Alcohol withdrawal Status: Acute (2) Cellulitis Status: Acute (3) Facial pain Status: Acute - Assessment and Plan (Free Text) Assessment: continue with current treatment / warm compresses to neck BID Await ID consult No surgical intervention at this , consider repeat CT scan 48 hours pending response to meds
--- NOTE | 2018-09-29 20:07 | CP.PCM.CON ---
History of Present Illness - History of Present Illness History of Present Illness: Infectious Disease Consultation: September 29, 2018 43 yo male with PMHx of polysubstance abuse who had a dental extraction about 1 month ago with [place] [facility] [place] The patient continues to complain about constant left jaw pain. He also complains about dizziness, chills, nausea, diaphoresis, and diarrhea. The patient continues to use Cocaine. He was using EtOH just before coming to hospital. CT scan showing only peridontal lucencies in the posterior mandible bilaterally but no abscesses. Started on Vancomycin and Rocephin. PMHx: polysubstance abuse PSHx: tooth extraction Allergies: NKDA Social Hx: 1/2 pint liquor every day for the past 25 years Occasional Cocaine and Marijuana use. Daily tobacco use Active Medications Folic Acid (Folic Acid) 1 mg IVP DAILY [facility] Last Admin: 09/29/18 10:23 Dose: 1 mg Vancomycin HCl (Vancomycin 750 Mg In Ns) 750 mg in 250 mls @ 167 mls/hr IVPB Q12H [facility]; Protocol Last Admin: 09/29/18 18:10 Dose: 167 mls/hr Lorazepam (Ativan) 2 mg IVP Q4H PRN; Protocol PRN Reason: Symptoms of alcohol withdrawl Last Admin: 09/29/18 05:43 Dose: 2 mg Nicotine (Nicoderm Cq) 1 patch TD DAILY PRN PRN Reason: URGE TO SMOKE Pantoprazole Sodium (Protonix Inj) 40 mg IVP DAILY [facility] Last Admin: 09/29/18 09:15 Dose: 40 mg Thiamine HCl (Vitamin B1 Inj) 100 mg IM DAILY [facility] Last Admin: 09/29/18 09:15 Dose: 100 mg Tramadol HCl (Ultram) 25 mg PO TID PRN PRN Reason: Pain, moderate (4-7) Family Hx: none given ROS: Constant complaints of lower jaw pain. Complains of nausea, dizziness, chills, nausea, diarrhea, and diaphoresis. No fevers, chills, headaches, chest pain, abdominal pain, melena, hematuria, hematemesis. Past Patient History - Infectious Disease Hx of Infectious Diseases: None - Past Social History Smoking Status: Heavy Smoker > 10 Cigarettes Daily Alcohol: Other (>6 / beers per day / 1 pint hard liquor daily ~ 25 years) Drugs: Cocaine - CARDIAC Hx Cardiac Disorders: No - PULMONARY Hx Respiratory Disorders: No - NEUROLOGICAL Hx Neurological Disorder: No - HEENT Hx HEENT Problems: No - RENAL Hx Chronic Kidney Disease: No - ENDOCRINE/METABOLIC Hx Endocrine Disorders: No - HEMATOLOGICAL/ONCOLOGICAL Hx Blood Disorders: No - INTEGUMENTARY Hx Dermatological Problems: No - MUSCULOSKELETAL/RHEUMATOLOGICAL Hx Falls: No - GASTROINTESTINAL Hx Gastrointestinal Disorders: No - GENITOURINARY/GYNECOLOGICAL Hx Genitourinary Disorders: No - PSYCHIATRIC Hx Substance Use: No Other/Comment: etoh - SURGICAL HISTORY Hx Orthopedic Surgery: Yes - ANESTHESIA Hx Anesthesia: Yes Hx Anesthesia Reactions: No Hx Malignant Hyperthermia: No Meds Allergies/Adverse Reactions: Allergies Allergy/AdvReac Type Severity Reaction Status Date / Time No Known Allergies Allergy Verified 09/28/18 15:02 - Medications Medications: Current Medications Folic Acid (Folic Acid) 1 mg IVP DAILY [facility] Last Admin: 09/29/18 10:23 Dose: 1 mg Vancomycin HCl (Vancomycin 750 Mg In Ns) 750 mg in 250 mls @ 167 mls/hr IVPB Q12H [facility]; Protocol Last Admin: 09/29/18 18:10 Dose: 167 mls/hr Lorazepam (Ativan) 2 mg IVP Q4H PRN; Protocol PRN Reason: Symptoms of alcohol withdrawl Last Admin: 09/29/18 05:43 Dose: 2 mg Nicotine (Nicoderm Cq) 1 patch TD DAILY PRN PRN Reason: URGE TO SMOKE Pantoprazole Sodium (Protonix Inj) 40 mg IVP DAILY [facility] Last Admin: 09/29/18 09:15 Dose: 40 mg Thiamine HCl (Vitamin B1 Inj) 100 mg IM DAILY [facility] Last Admin: 09/29/18 09:15 Dose: 100 mg Tramadol HCl (Ultram) 25 mg PO TID PRN PRN Reason: Pain, moderate (4-7) Physical Exam - Constitutional Appears: Non-toxic, No Acute Distress - Head Exam Head Exam: ATRAUMATIC, NORMOCEPHALIC - Eye Exam Eye Exam: EOMI, PERRL Pupil Exam: NORMAL ACCOMODATION, PERRL - ENT Exam ENT Exam: Mucous Membranes Moist, Normal External Ear Exam, TM's Normal Bilaterally Additional comments: Left bucosal lesion about [id number] with inflammation. Left cervical lymphadenopathy. Tender to mild palpation. - Neck Exam Neck exam: Positive for: Full Rom, Normal Inspection - Respiratory Exam Respiratory Exam: Clear to Auscultation Bilateral, NORMAL BREATHING PATTERN. absent: Rales, Rhonchi, Wheezes - Cardiovascular Exam Cardiovascular Exam: REGULAR RHYTHM, RRR, +S1, +S2 - GI/Abdominal Exam GI & Abdominal Exam: Normal Bowel Sounds, Soft. absent: Distended, Tenderness - Extremities Exam Extremities exam: Positive for: full ROM, normal inspection - Neurological Exam Neurological exam: Alert, CN II-XII Intact, Oriented x3 - Psychiatric Exam Psychiatric exam: Normal Affect, Normal Mood - Skin Skin Exam: Intact, Normal Color Results - Vital Signs Recent Vital Signs: Last Vital Signs Temp 99 F 09/29/18 12:00 Pulse 78 09/29/18 18:00 Resp 18 09/29/18 12:00 BP 135/91 H 09/29/18 12:00 Pulse Ox 98 09/29/18 06:00 - Labs Result Diagrams: 09/29/18 06:15 09/29/18 06:15 Labs: Laboratory Results - last 24 hr 09/28/18 09/28/18 09/29/18 15:40 15:40 06:15 WBC RBC Hgb Hct MCV MCH MCHC RDW Plt Count MPV Neut % (Auto) Lymph % (Auto) [place] % (Auto) Eos % (Auto) Baso % (Auto) Lymph # (Auto) [place] # (Auto) Eos # (Auto) Baso # (Auto) Absolute Neuts (auto) Sodium Potassium Chloride Carbon Dioxide Anion Gap BUN Creatinine Est GFR ( Amer) Est GFR (Non-Af Amer) Random Glucose Hemoglobin A1c 5.6 Calcium Phosphorus Magnesium Total Bilirubin AST ALT Alkaline Phosphatase Total Protein Albumin Globulin Albumin/Globulin Ratio Procalcitonin 0.10 L Hepatitis A IgM Ab Negative Hep Bs Antigen Negative Hep B Core IgM Ab Negative Hepatitis C Antibody Negative 09/29/18 09/29/18 06:15 06:15 WBC 11.3 H RBC 4.63 Hgb 15.0 Hct 44.1 MCV 95.2 MCH 32.4 MCHC 34.0 RDW 12.7 Plt Count 289 MPV 10.1 Neut % (Auto) 67.7 Lymph % (Auto) 20.3 L [place] % (Auto) 9.4 H Eos % (Auto) 2.5 Baso % (Auto) 0.1 Lymph # (Auto) 2.3 [place] # (Auto) 1.1 H Eos # (Auto) 0.3 Baso # (Auto) 0.01 Absolute Neuts (auto) 7.67 H Sodium 135 Potassium 3.8 Chloride 102 Carbon Dioxide 26 Anion Gap 10 BUN 11 Creatinine 0.5 L Est GFR ( Amer) > 60 Est GFR (Non-Af Amer) > 60 Random Glucose 84 Hemoglobin A1c Calcium 9.1 Phosphorus 3.5 Magnesium 2.2 Total Bilirubin 0.6 AST 38 ALT 20 Alkaline Phosphatase 78 Total Protein 7.0 Albumin 3.8 Globulin 3.2 Albumin/Globulin Ratio 1.2 Procalcitonin Hepatitis A IgM Ab Hep Bs Antigen Hep B Core IgM Ab Hepatitis C Antibody Assessment & Plan - Assessment and Plan (Free Text) Assessment: 43 yo male with relatively recent tooth extraction a month ago with abscess drainage presenting with persistent jaw pain. Currently received IV Vancomycin and Rocephin. Would given IV Vancomycin and Zosyn for now. If they is improvem ent, consider use of Clindamycin orally at 300 or 450 mg q8hrs for a minimum of 14 days of treatment. Procalcitonin is low at 0.10. Sepsis unlikely. No abscesses on CT exam. Supportive care. Thank you for allowing me to participate in the care of the patient, we will follow with you.
[2018-09-30] MEDS: Piperacillin/Tazobact 3.375 gm 100 ML IVPB SCH ×3 (05:31→21:23)
[2018-09-30] MEDS: Vancomycin 750mg 750 MG/250 ML BAG IVPB SCH (05:31)
[2018-09-30 07:18] LABS: BASO # 0.02 K/mm3 (0.0-2.0); BASO % 0.2 % (0.0-3.0); EOS # 0.4 (0.0-0.7); HEMOGLOBIN 15.3 g/dL (14.0-18.0); LYMPH # 1.8 (1.2-3.4); LYMPH % 18.6 % (22.0-35.0); MEAN CELL VOLUME 95.6 fl (80.0-105.0); MEAN CORPUSCULAR HEMOGLOBIN 32.1 pg (25.0-35.0); MEAN CORPUSCULAR HGB CONC 33.6 g/dl (31.0-37.0); MEAN PLATELET VOLUME 9.9 fl (7.0-11.0); MONO # 0.9 (0.1-0.6); MONO % 9.8 % (1.0-6.0); RBC 4.76 10^6/uL (3.5-6.1); RED CELL DISTRIBUTION WIDTH 12.5 % (11.5-14.5); WHITE BLOOD COUNT 9.4 10^3/uL (4.5-11.0)
[2018-09-30 07:57] LABS: ALB/GLOB RATIO 1.1 (1.1-1.8); ALBUMIN 3.5 g/dL (3.0-4.8); ALT/SGPT 13 U/L (7-56); AST/SGOT 36 U/L (17-59); BLOOD UREA NITROGEN 8 mg/dL (7-21); CALCIUM 8.9 mg/dL (8.4-10.5); GFR NON-AFRICAN AMERICAN > 60
--- NOTE | 2018-09-30 11:59 | CT ---
Date of service: 09/30/2018 PROCEDURE: CT MAXILLOFACIAL BONES WITHOUT CONTRAST HISTORY: f/u abscess COMPARISON: Comparison is made to the previous study dated 09/28/2018 TECHNIQUE: Contiguous axial CT images of the maxillofacial bones were obtained. Coronal and sagittal reformats were generated. Radiation dose: Total exam DLP = 735.66 mGy-cm. This CT exam was performed using one or more of the following dose reduction techniques: Automated exposure control, adjustment of the mA and/or kV according to patient size, and/or use of iterative reconstruction technique. FINDINGS: Limited assessment for soft tissue infection and abscess formation without IV contrast administration. NASAL BONES: Unremarkable. ORBITS: Unremarkable. PARANASAL SINUSES/ MASTOIDS: Mild mucosal thickening noted in maxillary and ethmoid sinuses. MAXILLA: Periodontal lucency are again noted more prominent around right maxillary molar teeth MANDIBLE/ TEMPOROMANDIBULAR JOINTS: There are multiple foci of large periodontal lucency in the bilateral premolar and molar teeth. Possible bony destruction and cortical erosion noted also more prominent in the left mandible around the premolar and molar teeth. The possibility of osteomyelitis should be excluded. There is adjacent soft tissue swelling and the possibility of left perimandibular small abscess formation is not totally excluded. There is also focal bony destruction/bony erosion at the midline anterior mandible noted. SKULL BASE: Unremarkable. TEMPORAL BONES: Middle ears and mastoid grossly unremarkable. OTHER FINDINGS: There is subcutaneous small high attenuation likely foreign body seen at the left chain lateral to the left zygomatic arch measures 6.7 millimeter best seen on image 87 series 3. There are mildly enlarged left upper neck lymph nodes seen. Diffuse soft tissue swelling noted in the left upper abdomen and left mandibular region. IMPRESSION: Multiple periodontal lucency likely represent periodontal abscesses. Suspicious for bony destruction and cortical erosion in the left mandible around premolar and molar teeth. The possibility of osteomyelitis should be excluded. Left perimandibular soft tissue swelling. The possibility of abscess formation cannot be excluded in this limited noncontrast study.. Suspicious for subcutaneous foreign body lateral to the left zygomatic arch. Diffuse soft tissue swelling in the left upper neck and left mandibular region associated with mildly enlarged lymph nodes.
--- NOTE | 2018-09-30 18:50 | CP.PCM.PN ---
<Jarrett Leavitt - Last Filed: 09/30/18 18:38> Subjective - Date & Time of Evaluation Date of Evaluation: 09/30/18 Time of Evaluation: 08:00 - Subjective Subjective: Jarrett Leavitt PGY1 Medicine Progress Note for Dr. Cramer Patient seen and examined at bedside this morning. Patient's vital signs are stable. No adverse overnight events. Patient says his mouth pain has improved. Denies cp, sob, n/v/d, fevers, chills. A full 12 point ROS was conducted and unremarkable except as stated above. Objective - Vital Signs/Intake and Output Vital Signs (last 24 hours): Temp Pulse Resp BP Pulse Ox 98.2 F 87 20 133/79 94 L 09/30/18 12:00 09/30/18 12:00 09/30/18 12:00 09/30/18 12:00 09/30/18 06:00 Intake and Output: 09/30/18 09/30/18 06:59 18:59 Intake Total 850 Output Total 600 Balance 250 - Medications Medications: Current Medications Folic Acid (Folic Acid) 1 mg PO DAILY [facility] Last Admin: 09/30/18 09:28 Dose: 1 mg Vancomycin HCl (Vancomycin 750 Mg In Ns) 750 mg in 250 mls @ 167 mls/hr IVPB Q12H [facility]; Protocol Last Admin: 09/30/18 05:31 Dose: 167 mls/hr Piperacillin Sod/Tazobactam Sod (Zosyn 3.375 In Ns 100ml) 100 mls @ 25 mls/hr IVPB Q8 [facility]; Protocol Last Admin: 09/30/18 13:35 Dose: 25 mls/hr Lorazepam (Ativan) 2 mg IVP Q4H PRN; Protocol PRN Reason: Symptoms of alcohol withdrawl Last Admin: 09/29/18 05:43 Dose: 2 mg Nicotine (Nicoderm Cq) 1 patch TD DAILY PRN PRN Reason: URGE TO SMOKE Last Admin: 09/30/18 08:34 Dose: 1 patch Pantoprazole Sodium (Protonix Inj) 40 mg IVP DAILY [facility] Last Admin: 09/30/18 09:20 Dose: 40 mg Thiamine HCl (Vitamin B1 Tab) 100 mg PO DAILY [facility] Last Admin: 09/30/18 09:19 Dose: 100 mg Tramadol HCl (Ultram) 25 mg PO TID PRN PRN Reason: Pain, moderate (4-7) Last Admin: 09/30/18 14:08 Dose: 25 mg - Labs Labs: 09/30/18 07:00 09/30/18 07:00 PT 10.2 SECONDS (9.4-12.5) 09/28/18 15:40 INR 0.92 09/28/18 15:40 APTT 30.8 Seconds (26.9-38.3) 09/28/18 15:40 - Constitutional Appears: No Acute Distress - Head Exam Head Exam: ATRAUMATIC, NORMAL INSPECTION, NORMOCEPHALIC - Eye Exam Eye Exam: EOMI, Normal appearance Pupil Exam: NORMAL ACCOMODATION - ENT Exam ENT Exam: Mucous Membranes Moist Additional comments: Decreased cervical neck swelling and tenderness from previous encounter. - Respiratory Exam Respiratory Exam: Clear to Ausculation Bilateral, NORMAL BREATHING PATTERN. absent: Rales, Rhonchi, Wheezes - Cardiovascular Exam Cardiovascular Exam: RRR, +S1, +S2 - GI/Abdominal Exam GI & Abdominal Exam: Soft, Normal Bowel Sounds. absent: Tenderness - Extremities Exam Extremities Exam: Full ROM, Normal Capillary Refill, Normal Inspection. absent: Joint Swelling, Pedal Edema - Back Exam Back Exam: NORMAL INSPECTION - Neurological Exam Neurological Exam: Alert, Awake, CN II-XII Intact, Normal Gait, Oriented x3 - Psychiatric Exam Psychiatric exam: Normal Affect, Normal Mood - Skin Skin Exam: Dry, Intact, Normal Color, Warm Assessment and Plan - Assessment and Plan (Free Text) Assessment: Patient is a 43 year old with past medical history of polysubstance abuse who presented to the ED for mouth pain. Patient admitted for EtOH withdrawal and Mouth Pain 2/2 Recent Dental Abscess. Plan: Mouth Pain 2/2 Recent Dental Abscess - Given repeat Maxillofacial CT findings, MRI orbit, face, and neck ordered to r/o osteomyelitis - Repeat Maxillofacial CT (09/30): multiple peridontal lucency likely represents peridontal abscesses. Suspicious bony destruction and cortical erosion in the left mandible around premolar and molar teeth. Possibility of osteomyelitis should be excluded. - ENT recs were appreciated. No surgical intervention. However, repeat CT was recommended. - Maxillofacial CT (09/29): peridontal lucencies in posterior mandable bilaterally. No evidence of abscess. - c/w Tramadol 25mg PO TID prn for pain control - Diet advanced to soft - warm compress to affected area - c/w zosyn for antibiotic coverage - ENT on consult (Dr. Watts). Recs appreciated. - ID on consult (Dr. Amin). Recs appreciated. - blood cx negative x2 prelim - afebrile, no leukocytosis - procal level 0.1 EtOH withdrawal - No signs of EtOH withdrawal currently - c/w ativan 2 mg IVP Q4H PRN - c/w CIWA protocol, aspiration, seizure, fall precautions - MVI/folic acid/thiamine daily Hx Polysubstance abuse - UDS positive for cocaine, cannabinoids - cessation counseling - c/w nicotine patch Hyperglycemia - Hgba1c - ISS, Accuchecks PPX - Protonix, SCDs Dispo: Continue to monitor patient. Given new findings of CT, follow up results of MRI to r/o osteomyelitis. Case was discussed and reviewed with Attending Physician, Dr. Cramer <Penny Cramer R - Last Filed: 10/01/18 07:28> Objective - Vital Signs/Intake and Output Vital Signs (last 24 hours): Temp Pulse Resp BP Pulse Ox 98.3 F 94 H 20 129/85 95 10/01/18 06:00 10/01/18 06:00 10/01/18 06:00 10/01/18 06:00 10/01/18 06:00 Intake and Output: 10/01/18 10/01/18 06:59 18:59 Intake Total 440 Output Total 1150 Balance -710 - Medications Medications: Current Medications Folic Acid (Folic Acid) 1 mg PO DAILY [facility] Last Admin: 09/30/18 09:28 Dose: 1 mg Vancomycin HCl (Vancomycin 750 Mg In Ns) 750 mg in 250 mls @ 167 mls/hr IVPB Q12H [facility]; Protocol Last Admin: 09/30/18 05:31 Dose: 167 mls/hr Piperacillin Sod/Tazobactam Sod (Zosyn 3.375 In Ns 100ml) 100 mls @ 25 mls/hr IVPB Q8 [facility]; Protocol Last Admin: 10/01/18 05:03 Dose: 25 mls/hr Lorazepam (Ativan) 2 mg IVP Q4H PRN; Protocol PRN Reason: Symptoms of alcohol withdrawl Last Admin: 09/29/18 05:43 Dose: 2 mg Multivitamins (Thera Tab) 1 tab PO 0800 [facility] Nicotine (Nicoderm Cq) 1 patch TD DAILY PRN PRN Reason: URGE TO SMOKE Last Admin: 09/30/18 08:34 Dose: 1 patch Pantoprazole Sodium (Protonix Inj) 40 mg IVP DAILY [facility] Last Admin: 09/30/18 09:20 Dose: 40 mg Thiamine HCl (Vitamin B1 Tab) 100 mg PO DAILY [facility] Last Admin: 09/30/18 09:19 Dose: 100 mg Tramadol HCl (Ultram) 25 mg PO TID PRN PRN Reason: Pain, moderate (4-7) Last Admin: 09/30/18 14:08 Dose: 25 mg - Labs Labs: 09/30/18 07:00 09/30/18 07:00 PT 10.2 SECONDS (9.4-12.5) 09/28/18 15:40 INR 0.92 09/28/18 15:40 APTT 30.8 Seconds (26.9-38.3) 09/28/18 15:40 Attending/Attestation - Attestation I have personally seen and examined this patient.: Yes I have fully participated in the care of the patient.: Yes I have reviewed all pertinent clinical information, including history, physical exam and plan: Yes Notes (Text): Patient seen and examined by me with resident at 9:20AM on 09/30/18. Case including HPI, physical exam, and assessment and plan discussed with resident. Agree with above with following additions/corrections. Patient is 43-year-old male with past medical history significant for polysubstance abuse that presented to the emergency room with a chief complaint of mouth pain that began approximately one month ago. Patient states he feels better. Improved pain in his mouth. Improved left jaw and neck pain. Patient denies any nausea, vomiting, or abdominal pain. No headaches or dizziness. No lightheadedness. No chest pain or palpitations. No diarrhea or constipation. No dysuria. Physical exam: General: Awake and alert lying in bed in no acute distress. HEENT: Normocephalic, atraumatic. Extraocular muscles intact, pupils equal and reactive, no scleral icterus. Oropharynx is pink and moist. Poor dentition. Left cheek/jaw with mild edema, tender to palpation. No pharyngeal erythema or exudate appreciated. Neck is supple. Cardiovascular: Normal rhythm. Normal S1 and S2. No murmurs, rubs, or gallops appreciated Pulmonary: Normal respiratory effort. No rhonchi, rales, or wheezing appreciated. Gastrointestinal: Soft, nondistended. Nontender. Positive bowel sounds all 4 quadrants. No guarding. Musculoskeletal: Moves all extremities. No calf tenderness. No edema appreciated. Central nervous system: AAOx3, CN 2-12 grossly intact. Dermatologic: Skin warm and dry. Assessment and plan: Patient is 43-year-old male with past medical history significant for polysubstance abuse that presented to the emergency room with a chief complaint of mouth pain that began approximately one month ago. 1. Mouth pain likely secondary to dental infection. Maxillofacial CT per radiologist showed periodontal lucencies are seen in the posterior mandible bilaterally, no evidence of abscess. Repeat maxillofacial CT today per radiologist showed multiple periodontal lucency likely represents periodontal abscesses; suspicious for bony distraction and cortical erosion in the left mandible around premolar and molar teeth; the possibility of osteomyelitis should be excluded; (mandibular soft tissue swelling; the possibility of abscess formation cannot be excluded in this limited noncontrast study; suspicious for subcutaneous form body lateral to the left zygomatic arch; diffuse soft tissue swelling in the left upper neck and left mandibular region associated with mildly enlarged lymph nodes. MRI ordered. ENT following, recommendations appreciated. Continue Zosyn. Vanco held for now secondary to increased Vanco trough. ID following, recommendations appreciated. Patient afebrile. Leukcytosis resolved. Procalcitonin 0.10. 2. Alcohol abuse/withdrawal. Continue CIWA protocol. Continue thiamine, folic acid, and multivitamin. Continue Ativan as needed. Librium stopped. Alcohol level <10. Patient counseled at length on cessation. 3. Polysubstance abuse. Patient uses cocaine and marijuana. Counseled at length on cessation. Monitor for withdrawal symptoms. 4. Tobacco abuse. Counseled on cessation. Continue with nicotine patch. 5. Hypergylcemia. HgbA1C 5.6. Continue to monitor. 6. Hypercalcemia. Resolved. Continue to monitor 7. Hypomagnesemia. Resolved. Continue to monitor. 8. DVT prophylaxis. SCDS and ambulation 9. Patient is a full code. Case discussed in detail with patient regarding current diagnosis and treatment plan. All questions answered.
--- NOTE | 2018-09-30 19:32 | CP.PCM.PN ---
Subjective - Date & Time of Evaluation Date of Evaluation: 09/30/18 Time of Evaluation: 17:15 - Subjective Subjective: Infectious Disease Follow Up: September 30, 2018 43 yo male with PMHx of polysubstance abuse who had a dental extraction about 1 month ago with abscess drainage at [facility] [place]. The patient continues to complain abou t constant left jaw pain. He also complains about dizziness, chills, nausea, diaphoresis, and diarrhea. The patient continues to use Cocaine. He was using EtOH just before coming to hospital. CT scan showing only peridontal lucencies in the posterior mandible bilaterally but no abscesses. Started on Vancomycin and Rocephin. Repeat Maxillofacial CT is now showing abscesses in the lower jaw. Objective - Vital Signs/Intake and Output Vital Signs (last 24 hours): Temp Pulse Resp BP Pulse Ox 98.2 F 87 20 133/79 94 L 09/30/18 12:00 09/30/18 12:00 09/30/18 12:00 09/30/18 12:00 09/30/18 06:00 Intake and Output: 09/30/18 10/01/18 18:59 06:59 Intake Total 1320 Output Total 1500 Balance -180 - Medications Medications: Current Medications Folic Acid (Folic Acid) 1 mg PO DAILY [facility] Last Admin: 09/30/18 09:28 Dose: 1 mg Vancomycin HCl (Vancomycin 750 Mg In Ns) 750 mg in 250 mls @ 167 mls/hr IVPB Q12H [facility]; Protocol Last Admin: 09/30/18 05:31 Dose: 167 mls/hr Piperacillin Sod/Tazobactam Sod (Zosyn 3.375 In Ns 100ml) 100 mls @ 25 mls/hr IVPB Q8 [facility]; Protocol Last Admin: 09/30/18 13:35 Dose: 25 mls/hr Lorazepam (Ativan) 2 mg IVP Q4H PRN; Protocol PRN Reason: Symptoms of alcohol withdrawl Last Admin: 09/29/18 05:43 Dose: 2 mg Nicotine (Nicoderm Cq) 1 patch TD DAILY PRN PRN Reason: URGE TO SMOKE Last Admin: 09/30/18 08:34 Dose: 1 patch Pantoprazole Sodium (Protonix Inj) 40 mg IVP DAILY [facility] Last Admin: 09/30/18 09:20 Dose: 40 mg Thiamine HCl (Vitamin B1 Tab) 100 mg PO DAILY [facility] Last Admin: 09/30/18 09:19 Dose: 100 mg Tramadol HCl (Ultram) 25 mg PO TID PRN PRN Reason: Pain, moderate (4-7) Last Admin: 09/30/18 14:08 Dose: 25 mg - Labs Labs: 09/30/18 07:00 09/30/18 07:00 PT 10.2 SECONDS (9.4-12.5) 09/28/18 15:40 INR 0.92 09/28/18 15:40 APTT 30.8 Seconds (26.9-38.3) 09/28/18 15:40 - Constitutional Appears: Non-toxic, No Acute Distress, Chronically Ill - Head Exam Head Exam: ATRAUMATIC, NORMOCEPHALIC - Eye Exam Eye Exam: EOMI, PERRL Pupil Exam: NORMAL ACCOMODATION, PERRL - ENT Exam ENT Exam: Mucous Membranes Moist, Normal External Ear Exam, TM's Normal B ilaterally Additional comments: Left bucosal lesion about [id number] with inflammation. Left cervical lymphadenopathy. Tender to mild palpation. - Neck Exam Neck Exam: Full ROM, Normal Inspection - Respiratory Exam Respiratory Exam: Clear to Ausculation Bilateral, NORMAL BREATHING PATTERN. absent: Rales, Rhonchi, Wheezes - Cardiovascular Exam Cardiovascular Exam: REGULAR RHYTHM, RRR, +S1, +S2 - GI/Abdominal Exam GI & Abdominal Exam: Soft, Normal Bowel Sounds. absent: Distended, Tenderness - Extremities Exam Extremities Exam: Full ROM, Normal Inspection - Neurological Exam Neurological Exam: Alert, Awake, CN II-XII Intact, Oriented x3 - Psychiatric Exam Psychiatric exam: Normal Affect, Normal Mood - Skin Skin Exam: Intact, Normal Color Assessment and Plan - Assessment and Plan (Free Text) Assessment: 43 yo male with relatively recent tooth extraction a month ago with abscess drainage presenting with persistent jaw pain. Currently received IV Vancomycin and Rocephin. Would given IV Vancomycin and Zosyn for now. If there is improvement, consider use of Clindamycin orally at 300 or 450 mg q8hrs for a minimum of 14 days of treatment. Procalcitonin is low at 0.10. Sepsis unlikel y. No abscesses on CT exam. Supportive care. With repeat CT scan showing abscesses, recheck ESR. Check MRI. The patient may need 6 weeks of IV antibiotics now. Thank you for allowing me to participate in the care of the patient, we will follow with you.
[2018-10-01] MEDS: Piperacillin/Tazobact 3.375 gm 100 ML IVPB SCH ×3 (05:03→21:14)
[2018-10-01 06:31] VITALS: RESP 20
[2018-10-01 08:37] LABS: BASO # 0.04 K/mm3 (0.0-2.0); BASO % 0.4 % (0.0-3.0); EOS # 0.4 (0.0-0.7); EOS % 4.1 % (1.5-5.0); HEMOGLOBIN 15.6 g/dL (14.0-18.0); LYMPH # 2.1 (1.2-3.4); LYMPH % 19.6 % (22.0-35.0); MEAN CELL VOLUME 96.5 fl (80.0-105.0); MEAN CORPUSCULAR HGB CONC 33.1 g/dl (31.0-37.0); MEAN PLATELET VOLUME 10.1 fl (7.0-11.0); MONO # 1.3 (0.1-0.6); MONO % 12.2 % (1.0-6.0); RBC 4.88 10^6/uL (3.5-6.1); RED CELL DISTRIBUTION WIDTH 12.6 % (11.5-14.5); WHITE BLOOD COUNT 10.5 10^3/uL (4.5-11.0)
[2018-10-01 09:16] LABS: ALB/GLOB RATIO 1.1 (1.1-1.8); ALBUMIN 3.9 g/dL (3.0-4.8); ALT/SGPT 10 U/L (7-56); AST/SGOT 30 U/L (17-59); BLOOD UREA NITROGEN 6 mg/dL (7-21); CALCIUM 9.4 mg/dL (8.4-10.5); GFR NON-AFRICAN AMERICAN > 60
[2018-10-01] MEDS: Multivitamin Therapeutic Tab PO SCH (09:59)
[2018-10-01] MEDS ORDERED: Potassium Chloride 40 mEq/30 ml LIQ UD PO ONE (13:42)
[2018-10-01] MEDS ORDERED: Gadodiamide 287 MG/ML VIAL (15ML) IV ONE (14:05)
--- NOTE | 2018-10-01 16:22 | CP.PCM.PN ---
<Jarrett Leavitt - Last Filed: 10/01/18 16:05> Subjective - Date & Time of Evaluation Date of Evaluation: 10/01/18 Time of Evaluation: 08:00 - Subjective Subjective: Jarrett Leavitt PGY1 Medicine Progress Note for Dr. Cramer Patient seen and examined at bedside this morning. Patient's vital signs are stable. No adverse overnight events. Patient says his mouth pain has improved. Denies cp, sob, n/v/d, fevers, chills. A full 12 point ROS was conducted and unremarkable except as stated above. Objective - Vital Signs/Intake and Output Vital Signs (last 24 hours): Temp Pulse Resp BP Pulse Ox 98.7 F 93 H 20 154/94 H 95 10/01/18 12:00 10/01/18 12:00 10/01/18 12:00 10/01/18 12:00 10/01/18 06:00 Intake and Output: 10/01/18 10/01/18 06:59 18:59 Intake Total 440 Output Total 1150 Balance -710 - Medications Medications: Current Medications Folic Acid (Folic Acid) 1 mg PO DAILY [facility] Last Admin: 10/01/18 09:56 Dose: 1 mg Vancomycin HCl (Vancomycin 750 Mg In Ns) 750 mg in 250 mls @ 167 mls/hr IVPB Q12H [facility]; Protocol Last Admin: 09/30/18 05:31 Dose: 167 mls/hr Piperacillin Sod/Tazobactam Sod (Zosyn 3.375 In Ns 100ml) 100 mls @ 25 mls/hr IVPB Q8 [facility]; Protocol Last Admin: 10/01/18 05:03 Dose: 25 mls/hr Lorazepam (Ativan) 1 mg IVP Q4H PRN; Protocol PRN Reason: Symptoms of alcohol withdrawl Multivitamins (Thera Tab) 1 tab PO 0800 [facility] Last Admin: 10/01/18 09:59 Dose: 1 tab Nicotine (Nicoderm Cq) 1 patch TD DAILY PRN PRN Reason: URGE TO SMOKE Last Admin: 10/01/18 09:59 Dose: 1 patch Pantoprazole Sodium (Protonix Inj) 40 mg IVP DAILY [facility] Last Admin: 10/01/18 09:59 Dose: 40 mg Thiamine HCl (Vitamin B1 Tab) 100 mg PO DAILY [facility] Last Admin: 10/01/18 09:58 Dose: 100 mg Tramadol HCl (Ultram) 25 mg PO TID PRN PRN Reason: Pain, moderate (4-7) Last Admin: 10/01/18 10:12 Dose: 25 mg - Labs Labs: 10/01/18 08:26 10/01/18 08:26 PT 10.2 SECONDS (9.4-12.5) 09/28/18 15:40 INR 0.92 09/28/18 15:40 APTT 30.8 Seconds (26.9-38.3) 09/28/18 15:40 - Constitutional Appears: No Acute Distress - Head Exam Head Exam: ATRAUMATIC, NORMAL INSPECTION, NORMOCEPHALIC - Eye Exam Eye Exam: EOMI, Normal appearance Pupil Exam: NORMAL ACCOMODATION - ENT Exam ENT Exam: Mucous Membranes Moist Additional comments: Decreased left cervical neck swelling and tenderness from previous encounter. - Respiratory Exam Respiratory Exam: Clear to Ausculation Bilateral, NORMAL BREATHING PATTERN. absent: Rales, Rhonchi, Wheezes - Cardiovascular Exam Cardiovascular Exam: RRR, +S1, +S2 - GI/Abdominal Exam GI & Abdominal Exam: Soft, Normal Bowel Sounds. absent: Tenderness - Extremities Exam Extremities Exam: Full ROM, Normal Capillary Refill, Normal Inspection. absent: Joint Swelling, Pedal Edema - Back Exam Back Exam: NORMAL INSPECTION - Neurological Exam Neurological Exam: Alert, Awake, CN II-XII Intact, Normal Gait, Oriented x3 - Psychiatric Exam Psychiatric exam: Normal Affect, Normal Mood - Skin Skin Exam: Dry, Intact, Normal Color, Warm Assessment and Plan - Assessment and Plan (Free Text) Assessment: Patient is a 43 year old with past medical history of polysubstance abuse who presented to the ED for mouth pain. Patient admitted for EtOH withdrawal and Mouth Pain 2/2 Dental Infection. Plan: Mouth Pain 2/2 Dental Infection - f/u results of MRI orbit, face, and neck; will discuss findings with ID and ENT - Given repeat maxillofacial CT findings, r/o osteomyelitis - c/w zosyn q8 for antibiotic coverage - Repeat Maxillofacial CT (09/30): multiple peridontal lucency likely represents peridontal abscesses. Suspicious bony destruction and cortical erosion in the left mandible around premolar and molar teeth. Possibility of osteomyelitis should be excluded. - Maxillofacial CT (09/29): peridontal lucencies in posterior mandable bilaterally. No evidence of abscess. - c/w Tramadol 25mg PO TID prn for pain control - Regular diet - c/w warm compress to affected area - ENT on consult (Dr. Watts). Recs appreciated. - ID on consult (Dr. Amin). Recs appreciated. - blood cx negative x2 prelim EtOH withdrawal - No signs of EtOH withdrawal - Counseled patient on EtOH cessation - tapered ativan 1 mg IVP Q4H PRN - c/w CIWA protocol, aspiration, seizure, fall precautions - MVI/folic acid/thiamine daily Hx Polysubstance abuse - Counseled patient on cessation - UDS positive for cocaine, cannabinoids - c/w nicotine patch Hyperglycemia - ISS, Accuchecks PPX - Protonix, SCDs Dispo: Continue to monitor patient. Follow up results of MRI orbit, face, and neck. Case was discussed and reviewed with Attending Physician, Dr. Cramer <Penny Cramer R - Last Filed: 10/01/18 16:59> Objective - Vital Signs/Intake and Output Vital Signs (last 24 hours): Temp Pulse Resp BP Pulse Ox 98.7 F 93 H 20 154/94 H 95 10/01/18 12:00 10/01/18 12:00 10/01/18 12:00 10/01/18 12:00 10/01/18 06:00 Intake and Output: 10/01/18 10/01/18 06:59 18:59 Intake Total 440 Output Total 1150 Balance -710 - Medications Medications: Current Medications Folic Acid (Folic Acid) 1 mg PO DAILY [facility] Last Admin: 10/01/18 09:56 Dose: 1 mg Vancomycin HCl (Vancomycin 750 Mg In Ns) 750 mg in 250 mls @ 167 mls/hr IVPB Q12H [facility]; Protocol Last Admin: 09/30/18 05:31 Dose: 167 mls/hr Piperacillin Sod/Tazobactam Sod (Zosyn 3.375 In Ns 100ml) 100 mls @ 25 mls/hr IVPB Q8 [facility]; Protocol Last Admin: 10/01/18 05:03 Dose: 25 mls/hr Lorazepam (Ativan) 1 mg IVP Q4H PRN; Protocol PRN Reason: Symptoms of alcohol withdrawl Multivitamins (Thera Tab) 1 tab PO 0800 [facility] Last Admin: 10/01/18 09:59 Dose: 1 tab Nicotine (Nicoderm Cq) 1 patch TD DAILY PRN PRN Reason: URGE TO SMOKE Last Admin: 10/01/18 09:59 Dose: 1 patch Pantoprazole Sodium (Protonix Inj) 40 mg IVP DAILY [facility] Last Admin: 10/01/18 09:59 Dose: 40 mg Thiamine HCl (Vitamin B1 Tab) 100 mg PO DAILY [facility] Last Admin: 10/01/18 09:58 Dose: 100 mg Tramadol HCl (Ultram) 25 mg PO TID PRN PRN Reason: Pain, moderate (4-7) Last Admin: 10/01/18 10:12 Dose: 25 mg - Labs Labs: 10/01/18 08:26 10/01/18 08:26 PT 10.2 SECONDS (9.4-12.5) 09/28/18 15:40 INR 0.92 09/28/18 15:40 APTT 30.8 Seconds (26.9-38.3) 09/28/18 15:40 Attending/Attestation - Attestation I have personally seen and examined this patient.: Yes I have fully participated in the care of the patient.: Yes I have reviewed all pertinent clinical information, including history, physical exam and plan: Yes Notes (Text): Patient seen and examined by me with resident at 8:20AM on 10/01/18. Case including HPI, physical exam, and assessment and plan discussed with resident. Agree with above with following additions/corrections. Patient is 43-year-old male with past medical history significant for polysubstance abuse that presented to the emergency room with a chief complaint of mouth pain that began approximately one month ago. Patient states he feels about the same today. Still with pain on the left side of his mouth and jaw. Patient is tolerating diet and states that he is able to eat from the side of his mouth. Patient denies nausea, vomiting, or abdominal pain. No headaches or dizziness. No lightheadedness. No chest pain or palpitations. No diarrhea or constipation. No dysuria. Physical exam: General: Awake and alert lying in bed in no acute distress. HEENT: Normocephalic, atraumatic. Extraocular muscles intact, pupils equal and reactive, no scleral icterus. Oropharynx is pink and moist. Poor dentition. Left cheek/jaw tender to palpation. No pharyngeal erythema or exudate appreciated. Neck is supple. Cardiovascular: Normal rhythm. Normal S1 and S2. No murmurs, rubs, or gallops appreciated Pulmonary: Normal respiratory effort. No rhonchi, rales, or wheezing appreciated. Gastrointestinal: Soft, nondistended. Nontender. Positive bowel sounds all 4 quadrants. No guarding. Musculoskeletal: Moves all extremities. No calf tenderness. No edema appreciated. Central nervous system: AAOx3, CN 2-12 grossly intact. Dermatologic: Skin warm and dry. Assessment and plan: Patient is 43-year-old male with past medical history significant for polysubstance abuse that presented to the emergency room with a chief complaint of mouth pain that began approximately one month ago. 1. Mouth pain likely secondary to dental infection. Possible absccess. Possible Osteo. MRI pending. Continue Zosyn. Vanco held for now secondary to increased Vanco trough. ID following, recommendations appreciated. Patietn afebrile. Leukcytosis resolved. Procalcitonin 0.10. Blood cultures negative. Maxillofacial CT per radiologist showed periodontal lucencies are seen in the posterior mandible bilaterally, no evidence of abscess. Repeat maxillofacial CT today per radiologist showed multiple periodontal lucency likely represents periodontal abscesses; suspicious for bony distraction and cortical erosion in the left ma ndible around premolar and molar teeth; the possibility of osteomyelitis should be excluded; (mandibular soft tissue swelling; the possibility of abscess formation cannot be excluded in this limited noncontrast study; suspicious for subcutaneous form body lateral to the left zygomatic arch; diffuse soft tissue swelling in the left upper neck and left mandibular region associated with mildly enlarged lymph nodes. ENT following, recommendations appreciated. 2. Alcohol abuse/withdrawal. Continue CIWA protocol. No signs of withdrawal now. Continue thiamine, folic acid, and multivitamin. Continue Ativan as needed. Librium stopped. Alcohol level <10. Patient counseled at length on cessation. 3. Polysubstance abuse. Patient uses cocaine and marijuana. Counseled at length on cessation. Monitor for withdrawal symptoms. 4. Tobacco abuse. Counseled on cessation. Continue with nicotine patch. 5. Hypergylcemia. HgbA1C 5.6. Continue to monitor. 6. Hypercalcemia. Resolved. Continue to monitor 7. Hypomagnesemia. Resolved. Continue to monitor. 8. DVT prophylaxis. SCDS and ambulation 9. Patient is a full code. Case discussed in detail with patient regarding current diagnosis and treatment plan. All questions answered.
--- NOTE | 2018-10-01 22:15 | CP.PCM.PN ---
Subjective - Date & Time of Evaluation Date of Evaluation: 10/01/18 Time of Evaluation: 19:45 - Subjective Subjective: Infectious Disease Follow Up: October 01, 2018 43 yo male with PMHx of polysubstance abuse who had a dental extraction about 1 month ago with abscess drainage at [facility] [place]. The patient continues to complain abou t constant left jaw pain. He also complains about dizziness, chills, nausea, diaphoresis, and diarrhea. The patient continues to use Cocaine. He was using EtOH just before coming to hospital. CT scan showing only peridontal lucencies in the posterior mandible bilaterally but no abscesses. Started on Vancomycin and Rocephin. Repeat Maxillofacial CT is now showing abscesses in the lower jaw. MRI reading is pending. Currently, treating for possible jaw osteomyelitis with IV antibiotics of Zosyn and IV Vancomycin. Objective - Vital Signs/Intake and Output Vital Signs (last 24 hours): Temp Pulse Resp BP Pulse Ox 98.2 F 74 20 125/82 99 10/01/18 21:32 10/01/18 21:32 10/01/18 21:32 10/01/18 21:32 10/01/18 21:32 - Medications Medications: Current Medications Folic Acid (Folic Acid) 1 mg PO DAILY [facility] Last Admin: 10/01/18 09:56 Dose: 1 mg Vancomycin HCl (Vancomycin 750 Mg In Ns) 750 mg in 250 mls @ 167 mls/hr IVPB Q12H [facility]; Protocol Last Admin: 09/30/18 05:31 Dose: 167 mls/hr Piperacillin Sod/Tazobactam Sod (Zosyn 3.375 In Ns 100ml) 100 mls @ 25 mls/hr IVPB Q8 KIA; Protocol Last Admin: 10/01/18 21:14 Dose: 25 mls/hr Lorazepam (Ativan) 1 mg IVP Q4H PRN; Protocol PRN Reason: Symptoms of alcohol withdrawl Multivitamins (Thera Tab) 1 tab PO 0800 [facility] Last Admin: 10/01/18 09:59 Dose: 1 tab Nicotine (Nicoderm Cq) 1 patch TD DAILY PRN PRN Reason: URGE TO SMOKE Last Admin: 10/01/18 09:59 Dose: 1 patch Pantoprazole Sodium (Protonix Inj) 40 mg IVP DAILY [facility] Last Admin: 10/01/18 09:59 Dose: 40 mg Thiamine HCl (Vitamin B1 Tab) 100 mg PO DAILY [facility] Last Admin: 10/01/18 09:58 Dose: 100 mg Tramadol HCl (Ultram) 25 mg PO TID PRN PRN Reason: Pain, moderate (4-7) Last Admin: 10/01/18 18:25 Dose: 25 mg - Labs Labs: 10/01/18 08:26 10/01/18 08:26 PT 10.2 SECONDS (9.4-12.5) 09/28/18 15:40 INR 0.92 09/28/18 15:40 APTT 30.8 Seconds (26.9-38.3) 09/28/18 15:40 - Constitutional Appears: Non-toxic, No Acute Distress, Chronically Ill - Head Exam Head Exam: ATRAUMATIC, NORMOCEPHALIC - Eye Exam Eye Exam: EOMI, PERRL Pupil Exam: NORMAL ACCOMODATION, PERRL - ENT Exam ENT Exam: Mucous Membranes Moist, Normal External Ear Exam, TM's Normal Bilaterally Additional comments: Left bucosal lesion about [id number] with inflammation. Left cervical lymphadenopathy. Tender to mild palpation. - Neck Exam Neck Exam: Full ROM, Normal Inspection - Respiratory Exam Respiratory Exam: Clear to Ausculation Bilateral, NORMAL BREATHING PATTERN. absent: Rales, Rhonchi, Wheezes - Cardiovascular Exam Cardiovascular Exam: REGULAR RHYTHM, RRR, +S1, +S2 - GI/Abdominal Exam GI & Abdominal Exam: Distended, Soft, Normal Bowel Sounds. absent: Tenderness - Extremities Exam Extremities Exam: Full ROM, Normal Inspection - Neurological Exam Neurological Exam: Alert, Awake, CN II-XII Intact, Oriented x3 - Psychiatric Exam Psychiatric exam: Normal Affect, Normal Mood - Skin Skin Exam: Intact, Normal Color Assessment and Plan - Assessment and Plan (Free Text) Assessment: 43 yo male with relatively recent tooth extraction a month ago with abscess drainage presenting with persistent jaw pain. Currently received IV Vancomycin and Rocephin. Would given IV Vancomycin and Zosyn for now. If there is improvement, consider use of Clindamycin orally at 300 or 450 mg q8hrs for a minimum of 14 days of treatment. Procalcitonin is low at 0.10. Sepsis unlikely. No abscesses on CT exam. Supportive care. With repeat CT scan showing abscesses, recheck ESR. Check MRI... reading pending. The patient may need 6 weeks of IV antibiotics now. Thank you for allowing me to participate in the care of the patient, we will follow with you.
[2018-10-02] MEDS: Piperacillin/Tazobact 3.375 gm 100 ML IVPB SCH ×2 (05:21→13:23)
[2018-10-02] MEDS ORDERED: Pantoprazole 40 mg EC Tab PO SCH (06:00)
[2018-10-02 07:43] LABS: BASO # 0.03 K/mm3 (0.0-2.0); BASO % 0.3 % (0.0-3.0); EOS # 0.4 (0.0-0.7); EOS % 3.9 % (1.5-5.0); HEMOGLOBIN 15.9 g/dL (14.0-18.0); LYMPH # 2.3 (1.2-3.4); LYMPH % 22.6 % (22.0-35.0); MEAN CELL VOLUME 95.5 fl (80.0-105.0); MEAN CORPUSCULAR HEMOGLOBIN 32.2 pg (25.0-35.0); MEAN CORPUSCULAR HGB CONC 33.7 g/dl (31.0-37.0); MEAN PLATELET VOLUME 9.6 fl (7.0-11.0); MONO # 0.8 (0.1-0.6); MONO % 7.5 % (1.0-6.0); RBC 4.94 10^6/uL (3.5-6.1); RED CELL DISTRIBUTION WIDTH 12.4 % (11.5-14.5); WHITE BLOOD COUNT 10.2 10^3/uL (4.5-11.0)
[2018-10-02 07:53] LABS: ALB/GLOB RATIO 1.2 (1.1-1.8); ALBUMIN 4.1 g/dL (3.0-4.8); ALT/SGPT 8 U/L (7-56); AST/SGOT 27 U/L (17-59); BLOOD UREA NITROGEN 7 mg/dL (7-21); CALCIUM 9.7 mg/dL (8.4-10.5); GFR NON-AFRICAN AMERICAN > 60
[2018-10-02] MEDS: Multivitamin Therapeutic Tab PO SCH (07:55)
[2018-10-02 16:27] VITALS: BP 124/88; PULSE 92; TEMP 98.8; O2SAT 99
--- NOTE | 2018-10-02 16:48 | CP.PCM.PN ---
Subjective - Date & Time of Evaluation Date of Evaluation: 10/02/18 Time of Evaluation: 15:00 - Subjective Subjective: Infectious Disease Follow Up: October 02, 2018 43 yo male with PMHx of polysubstance abuse who had a dental extraction about 1 month ago with abscess drainage at [facility] [place]. The patient continues to complain abou t constant left jaw pain. He also complains about dizziness, chills, nausea, diaphoresis, and diarrhea. The patient continues to use Cocaine. He was using EtOH just before coming to hospital. CT scan showing only peridontal lucencies in the posterior mandible bilaterally but no abscesses. Started on Vancomycin and Rocephin. Repeat Maxillofacial CT is now showing abscesses in the lower jaw. MRI reading is pending. Currently, treating for possible jaw osteomyelitis with IV antibiotics of Zosyn and IV Vancomycin. MRI preliminary reads are suggesting osteomyelitis. Objective - Vital Signs/Intake and Output Vital Signs (last 24 hours): Temp Pulse Resp BP Pulse Ox 98.8 F 92 H 20 124/88 99 10/02/18 14:00 10/02/18 14:00 10/02/18 14:00 10/02/18 14:00 10/02/18 14:00 - Medications Medications: Current Medications Folic Acid (Folic Acid) 1 mg PO DAILY [facility] Last Admin: 10/02/18 09:20 Dose: 1 mg Vancomycin HCl (Vancomycin 750 Mg In Ns) 750 mg in 250 mls @ 167 mls/hr IVPB Q12H [facility]; Protocol Last Admin: 09/30/18 05:31 Dose: 167 mls/hr Piperacillin Sod/Tazobactam Sod (Zosyn 3.375 In Ns 100ml) 100 mls @ 25 mls/hr IVPB Q8 [facility]IA; Protocol Last Admin: 10/02/18 13:23 Dose: 25 mls/hr Lorazepam (Ativan) 1 mg IVP Q4H PRN; Protocol PRN Reason: Symptoms of alcohol withdrawl Multivitamins (Thera Tab) 1 tab PO 0800 [facility] Last Admin: 10/02/18 07:55 Dose: 1 tab Nicotine (Nicoderm Cq) 1 patch TD DAILY PRN PRN Reason: URGE TO SMOKE Last Admin: 10/02/18 07:55 Dose: 1 patch Pantoprazole Sodium (Protonix Ec Tab) 40 mg PO 0600 [facility] Last Admin: 10/02/18 05:43 Dose: 40 mg Thiamine HCl (Vitamin B1 Tab) 100 mg PO DAILY [facility] Last Admin: 10/02/18 09:15 Dose: 100 mg Tramadol HCl (Ultram) 25 mg PO TID PRN PRN Reason: Pain, moderate (4-7) Last Admin: 10/01/18 18:25 Dose: 25 mg - Labs Labs: 10/02/18 07:15 10/02/18 07:15 PT 10.2 SECONDS (9.4-12.5) 09/28/18 15:40 INR 0.92 09/28/18 15:40 APTT 30.8 Seconds (26.9-38.3) 09/28/18 15:40 - Constitutional Appears: Non-toxic, No Acute Distress, Chronically Ill - Head Exam Head Exam: ATRAUMATIC, NORMOCEPHALIC - Eye Exam Eye Exam: EOMI, PERRL Pupil Exam: NORMAL ACCOMODATION, PERRL - ENT Exam ENT Exam: Mucous Membranes Moist, Normal External Ear Exam, TM's Normal Bilaterally - Neck Exam Neck Exam: Full ROM, Normal Inspection Additional comments: Left bucosal lesion about 9xfx4no with inflammation. Left cervical lymp hadenopathy. Tender to mild palpation. No significant change at this time. - Respiratory Exam Respiratory Exam: Clear to Ausculation Bilateral, NORMAL BREATHING PATTERN. absent: Rales, Rhonchi, Wheezes - Cardiovascular Exam Cardiovascular Exam: REGULAR RHYTHM, RRR, +S1, +S2 - GI/Abdominal Exam GI & Abdominal Exam: Distended, Soft, Normal Bowel Sounds. absent: Tenderness - Extremities Exam Extremities Exam: Full ROM, Normal Inspection - Neurological Exam Neurological Exam: Alert, Awake, CN II-XII Intact, Oriented x3 - Psychiatric Exam Psychiatric exam: Normal Affect, Normal Mood - Skin Skin Exam: Intact, Normal Color Assessment and Plan - Assessment and Plan (Free Text) Assessment: 43 yo male with relatively recent tooth extraction a month ago with abscess drainage presenting with persistent jaw pain. Currently received IV Vancomycin and Rocephin. Would given IV Vancomycin and Zosyn for now. If there is improvement, consider use of Clindamycin orally at 300 or 450 mg q8hrs for a minimum of 14 days of treatment. Procalcitonin is low at 0.10. Sepsis unlikely. No abscesses on CT exam. Supportive care. With repeat CT scan showing abscesses, recheck ESR. Check MRI... reading pending... preliminary reading suggesting osteomyelitis. The patient will need 6 weeks of IV antibiotics now. While in hospital, maintain Vancomycin IV and Z osyn. Monitor renal function. If the patient's signs out AMA, the patient can be given oral Zyvox and high dose Clindamycin but this regimen will have significantly decreased treatment potential compared to IV antibiotics. The patient is not a candidate for IV home infusion given the recent urine drug screen being positive for Marijuana and Cocaine. Monitor ESR. Thank you for allowing me to participate in the care of the patient, we will follow with you.
--- NOTE | 2018-10-02 18:55 | CP.PCM.DIS ---
Provider - Provider Date of Admission: 09/28/18 19:54 Attending physician: Penny Cramer DO Consults: 09/28/18 20:46 Social Work Referral Routine Comment: ETOH WITHDRAWAL AND CELLULITIS Physician Instructions: Reason For Exam: ETOH WITHDRAWAL AND CELLULITIS 09/28/18 20:51 ENT [Otolaryngology Consult] Routine Consulting Provider: Tristen Watts Consulting Physician: Tristen Watts Reason for Consult: Dental abscess 09/28/18 20:59 Infectious Disease Consult Routine Comment: Consulting Provider: Tristen Amin Consulting Physician: Tristen Amin Reason for Consult: Dental abscess Time Spent in preparation of Discharge (in minutes): 35 Hospital Course - Lab Results Lab Results: Micro Results 09/28/18 16:00 Blood Blood Culture - Preliminary NO GROWTH AFTER 4 DAYS 09/28/18 15:40 Blood Blood Culture - Preliminary NO GROWTH AFTER 4 DAYS 09/28/18 18:48 Urine Random Urine Culture - Final No Growth (<1,000 CFU/ML) Most Recent Lab Values WBC 10.2 10^3/uL (4.5-11.0) 10/02/18 07:15 RBC 4.94 10^6/uL (3.5-6.1) 10/02/18 07:15 Hgb 15.9 g/dL (14.0-18.0) 10/02/18 07:15 Hct 47.2 % (42.0-52.0) 10/02/18 07:15 MCV 95.5 fl (80.0-105.0) 10/02/18 07:15 MCH 32.2 pg (25.0-35.0) 10/02/18 07:15 MCHC 33.7 g/dl (31.0-37.0) 10/02/18 07:15 RDW 12.4 % (11.5-14.5) 10/02/18 07:15 Plt Count 316 10^3/uL (120.0-450.0) 10/02/18 07:15 MPV 9.6 fl (7.0-11.0) 10/02/18 07:15 Neut % (Auto) 65.7 % (50.0-68.0) 10/02/18 07:15 Lymph % (Auto) 22.6 % (22.0-35.0) 10/02/18 07:15 Pepin % (Auto) 7.5 % (1.0-6.0) H 10/02/18 07:15 Eos % (Auto) 3.9 % (1.5-5.0) 10/02/18 07:15 Baso % (Auto) 0.3 % (0.0-3.0) 10/02/18 07:15 Lymph # (Auto) 2.3 (1.2-3.4) 10/02/18 07:15 Pepin # (Auto) 0.8 (0.1-0.6) H 10/02/18 07:15 Eos # (Auto) 0.4 (0.0-0.7) 10/02/18 07:15 Baso # (Auto) 0.03 K/mm3 (0.0-2.0) 10/02/18 07:15 Absolute Neuts (auto) 6.69 (1.4-6.5) H 10/02/18 07:15 ESR 31 mm/hr (0.0-15.0) H 10/01/18 09:51 PT 10.2 SECONDS (9.4-12.5) 09/28/18 15:40 INR 0.92 09/28/18 15:40 APTT 30.8 Seconds (26.9-38.3) 09/28/18 15:40 pO2 26 mm/Hg (30-55) L 09/28/18 15:45 VBG pH 7.48 (7.32-7.43) H 09/28/18 15:45 VBG pCO2 40.0 (40-60) 09/28/18 15:45 VBG HCO3 29.8 mmol/l (21-28) H 09/28/18 15:45 VBG Total CO2 31.0 mmol.L (22-28) H 09/28/18 15:45 VBG O2 Sat (Calc) 61.8 % (40-65) 09/28/18 15:45 VBG Base Excess 5.8 mmol/L (0.0-2.0) H 09/28/18 15:45 VBG Potassium 4.2 mmol/L (3.6-5.2) 09/28/18 15:45 Sodium 134.0 mmol/L (132-148) 09/28/18 15:45 Chloride 99.0 mmol/L (98-107) 09/28/18 15:45 Glucose 180 mg/dl (75-110) H 09/28/18 15:45 Lactate 1.6 mmol/L (0.7-2.1) 09/28/18 15:45 FiO2 21.0 % 09/28/18 15:45 Sodium 138 mmol/L (132-148) 10/02/18 07:15 Potassium 3.8 mmol/L (3.6-5.0) 10/02/18 07:15 Chloride 101 mmol/L (98-107) 10/02/18 07:15 Carbon Dioxide 31 mmol/L (21-33) 10/02/18 07:15 Anion Gap 10 (10-20) 10/02/18 07:15 BUN 7 mg/dL (7-21) 10/02/18 07:15 Creatinine 0.8 mg/dl (0.8-1.5) 10/02/18 07:15 Est GFR ( Amer) > 60 10/02/18 07:15 Est GFR (Non-Af Amer) > 60 10/02/18 07:15 Random Glucose 108 mg/dL (70-110) 10/02/18 07:15 Hemoglobin A1c 5.6 % (4.2-6.5) 09/28/18 15:40 Calcium 9.7 mg/dL (8.4-10.5) 10/02/18 07:15 Phosphorus 2.9 mg/dL (2.5-4.5) 09/30/18 07:00 Magnesium 2.0 mg/dL (1.7-2.2) 10/02/18 07:15 Total Bilirubin 0.5 mg/dL (0.2-1.3) 10/02/18 07:15 AST 27 U/L (17-59) 10/02/18 07:15 ALT 8 U/L (7-56) 10/02/18 07:15 Alkaline Phosphatase 68 U/L (38-126) 10/02/18 07:15 Lactate Dehydrogenase 463 U/L (333-699) 09/28/18 15:40 Total Creatine Kinase 66 U/L (35-230) 09/28/18 15:40 Troponin I < 0.01 ng/mL 09/28/18 15:40 Total Protein 7.6 g/dL (5.8-8.3) 10/02/18 07:15 Albumin 4.1 g/dL (3.0-4.8) 10/02/18 07:15 Globulin 3.5 gm/dL 10/02/18 07:15 Albumin/Globulin Ratio 1.2 (1.1-1.8) 10/02/18 07:15 Amylase 63 U/L (35-125) 09/28/18 15:40 Lipase 139 U/L (23-300) 09/28/18 15:40 Procalcitonin 0.10 NG/ML (0.19-0.49) L 09/29/18 06:15 Venous Blood Potassium 4.2 mmol/L (3.6-5.2) 09/28/18 15:45 Urine Color Light yellow (YELLOW) 09/28/18 17:15 Urine Appearance Clear (CLEAR) 09/28/18 17:15 Urine pH 7.0 (4.7-8.0) 09/28/18 17:15 Ur Specific Filion 1.015 (1.005-1.035) 09/28/18 17:15 Urine Protein Negative mg/dL (<30 mg/dL) 09/28/18 17:15 Urine Glucose (UA) Negative mg/dL (NEGATIVE) 09/28/18 17:15 Urine Ketones Trace mg/dL (NEGATIVE) H 09/28/18 17:15 Urine Blood Negative (NEGATIVE) 09/28/18 17:15 Urine Nitrate Negative (NEGATIVE) 09/28/18 17:15 Urine Bilirubin Negative (NEGATIVE) 09/28/18 17:15 Urine Urobilinogen 0.2 E.U./dL (<1 E.U./dL) 09/28/18 17:15 Ur Leukocyte Esterase Negative Radha/uL (NEGATIVE) 09/28/18 17:15 Vancomycin Trough 24.2 ug/mL (5.0-10.0) H* 09/30/18 09:30 Salicylates < 1 mg/dL (2.0-20.0) L 09/28/18 15:40 Urine Opiates Screen Negative (NEGATIVE) 09/28/18 17:15 Urine Methadone Screen Negative (NEGATIVE) 09/28/18 17:15 Acetaminophen < 10.0 ug/ml (10.0-20.0) L 09/28/18 15:40 Ur Barbiturates Screen Negative (NEGATIVE) 09/28/18 17:15 Ur Phencyclidine Scrn Negative (NEGATIVE) 09/28/18 17:15 Ur Amphetamines Screen Negative (NEGATIVE) 09/28/18 17:15 U Benzodiazepines Scrn Negative (NEGATIVE) 09/28/18 17:15 U Oth Cocaine Metabols Positive (NEGATIVE) H 09/28/18 17:15 U Cannabinoids Screen Positive (NEGATIVE) H 09/28/18 17:15 Alcohol, Quantitative < 10 mg/dL (0-10) 09/28/18 15:40 Hepatitis A IgM Ab Negative (NEGATIVE) 09/28/18 15:40 Hep Bs Antigen Negative (NEGATIVE) 09/28/18 15:40 Hep B Core IgM Ab Negative (NEGATIVE) 09/28/18 15:40 Hepatitis C Antibody Negative (NEGATIVE) 09/28/18 15:40 HIV 1&2 Ag/Ab, 4th Gen Nonreactive (Nonreactive) 09/29/18 06:15 Influenza Typ A,B (EIA) Negative for flu a/b (NEGATIVE) 09/28/18 15:40 - Hospital Course Hospital Course: Jarrett Leavitt, PGY1 Discharge Summary for Dr. Cramer Patient is a 43 year old with past medical history of polysubstance abuse who presented to the ED for mouth pain which began about one month prior during a dental abscess drainage at [facility] [place]. Since that procedure, patient has had persistent left jaw pain. Patient is also a cocaine user and had recently drank alcohol prior to admission. Vital signs were stable upon admission. Medical team evaluated patient for mouth pain 2/2 recent dental infection. In order to consider the possibility of dental abscess, imaging was ordered and ID/ENT was consulted for evaluation. Initial Maxillofacial CT showed peridontal lucencies seen in the post mandible with no evidence of abscess. Given polysubstance abuse and alcohol abuse, patient was also placed on alcohol withdrawal protocol. Recommendations as per ID and ENT were appreciated. Patient initially started on IV antibiotics. ENT did not recommend any intervention however it was suggested to repeat imaging. Upon repeat maxillofacial CT, there was evidence of bony destruction and cortical erosion of the left mandible, possible abscess. Further recommendations was for MRI to evaluate for osteomyelitis. MRI of the neck was in fact suspicious for osteomyelitis. Although blood cultures were negative for growth, patient was explained extensively the severity of his infection. However, patient was persistently adamant that he needed to go home in order to deal with social issues (occupation/housing). He was told that he requires 6 weeks of IV antibiotics for his infection otherwise he risks worsening infection, disability, and even . Patient has full capacity and verbalized understand and decided to sign out against medical advice. He will obtain PO antibiotics when signing out AMA, however, it was stressed that it is important to return for IV antibiotics and to re-visit his dentist upon discharge. Discharge Exam - Head Exam Head Exam: ATRAUMATIC, NORMOCEPHALIC - Eye Exam Eye Exam: EOMI, Normal appearance - ENT Exam ENT Exam: Mucous Membranes Moist Additional comments: Evidence of left sided dental infection at the left buccal mucosa. Improved left sided cervical swelling. Decreased pain to palpation. - Respiratory Exam Respiratory Exam: Clear to PA & Lateral. absent: Rales, Rhonchi, Wheezes - Cardiovascular Exam Cardiovascular Exam: REGULAR RHYTHM, +S1, +S2 - GI/Abdominal Exam GI & Abdominal Exam: Normal Bowel Sounds, Soft. absent: Distended, Firm, Guarding, Rigid - Extremities Exam Extremities exam: normal capillary refill, normal inspection, pedal pulses present - Neurological Exam Neurological exam: Alert, CN II-XII Intact, Normal Gait, Oriented x3, Reflexes Normal - Psychiatric Exam Psychiatric exam: Normal Affect, Normal Mood - Skin Skin Exam: Dry, Intact, Normal Color, Warm Discharge Plan - Discharge Medications Prescriptions: Clindamycin [Cleocin] 600 mg PO TID #15 cap Linezolid [Zyvox] 600 mg PO BID #10 tab - Follow Up Plan Condition: FAIR Disposition: AGAINST MEDICAL ADVICE Instructions: Osteomyelitis (DC), Cellulitis (ED) Additional Instructions: 1. You will be discharged on the antibiotic clindamycin 600mg three times a day for the next 5 days. You require at least 6 weeks of antibiotic therapy for your infection, so please follow-up with a primary medical care provider for continued therapy. 2. You will be discharged on the antibiotic Zyvox 600mg twice daily for the next 5 days. You require at least 6 weeks of antibiotic therapy for your infection, so please follow-up with a primary medical care provider for continued therapy. 2. Please see your dentist upon discharge within 3-5 days. 3. Please follow up for your scheduled clinic appointment at [facility] on October 13 at 1:30 pm. 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 4. Please return to the nearest emergency department if your symptoms worsen (worsening mouth pain, fevers, chills) Referrals: [facility] [place]]
--- NOTE | 2018-10-04 13:19 | MRI ---
Date of service: 10/01/2018 PROCEDURE: MRI NECK WITH AND WITHOUT CONTRAST HISTORY: r/o osteomylitis COMPARISON: None. TECHNIQUE: Multiplanar multisequence MR images of the neck were obtained with and without gadolinium enhancement. 15 cc of Omniscan FINDINGS: NASOPHARYNX: Unremarkable. SUPRAHYOID NECK: Unremarkable oropharynx, oral cavity, parapharyngeal space and retropharyngeal space. INFRAHYOID NECK: Unremarkable larynx, hypopharynx, and supraglottic space. Vocal cords intact. There is a large phlegmon in the floor of the mouth adjacent to the left side of the mandible. In the coronal plane this measures 4.5 cm height by 2.4 cm wide. In the axial plane it measures 5 cm AP. This displaces the tongue to the right. There is minimal enhancement and edema within the tooth socket of the recently removed tooth on the left. There is otherwise no significant marrow edema or destruction of the mandible. MASS: None. GLANDS: Parotid and submandibular glands unremarkable. Normal size thyroid gland, without nodule. LYMPH NODES: Mildly enlarged cervical lymph nodes are most likely reactive. VASCULAR STRUCTURES: Unremarkable. ENHANCEMENT: As above OTHER FINDINGS: The report concurs with the preliminary [employer] report IMPRESSION: There is a large phlegmon in the floor of the mouth adjacent to the left side of the mandible. In the coronal plane this measures 4.5 cm height by 2.4 cm wide. In the axial plane it measures 5 cm AP. This displaces the tongue to the right. There is minimal enhancement and edema within the tooth socket of the recently removed tooth on the left. There is otherwise no significant marrow edema or destruction of the mandible.
== END 2018-10-02 16:56 | disposition left against medical advice (07) | DRG 114 ==
LOC: ED 14:36 → ERH 19:54 → 2RNO 23:17 → 5RSO 10-01 17:49
PROVIDERS: ADMIT Hospitalist; ATTEND Hospitalist
DX: K04.7 Periapical abscess without sinus (principal); E83.42 Hypomagnesemia; E83.52 Hypercalcemia; M27.2 Inflammatory conditions of jaws; L03.90 Cellulitis, unspecified; F10.20 Alcohol dependence, uncomplicated; R51 Headache; R73.9 Hyperglycemia, unspecified; F14.10 Cocaine abuse, uncomplicated; F12.10 Cannabis abuse, uncomplicated; Z72.0 Tobacco use

== ENCOUNTER 2018-10-09 13:37 | Emergency (ER) | payer MEDICAID ==
[2018-10-09 13:37] VITALS: BMI 19.8
[2018-10-09] MEDS ORDERED: Vancomycin 1gm in NS 250ml 1 GM/250 ML BAG IVPB STA (14:42)
[2018-10-09] MEDS ORDERED: Piperacillin/Tazobact 3.375 gm 100 ML IVPB STA (14:42)
--- NOTE | 2018-10-09 14:48 | ED PDOC ---
Arrival/HPI - General Historian: Patient - History of Present Illness Narrative History of Present Illness (Text): 10/09/18 14:51 43 year old with PMH of polysubstance abuse, dental abscess presents to the ED with persistent dental pain in the setting of dental abscess for the past 2 month. Patient was admitted to [facility] for the same issue and refused to contonue IV antibiotic course and signed AMA on 10/02/18. He left the hospital with 5 days supply of oral antibiotic to be followed up with PMD and a dentist but he did not. Patient reports dental pain, difficulty swallowing, weight loss due to inability to eat any solid food. He denies associated fever, chills, CP, SOB, abdominal pain, changes in bowel movement, N/V/D, headache, dizziness, urinary symptoms. Patient still smokes cigars, marijuana, drinks alcohol daily. His last drink was this am. 10/09/18 14:59 Time/Duration: > month Symptom Course: Unchanged Context: Home <Grant Saleh - Last Filed: 10/09/18 14:51> <Skip Rodriguez - Last Filed: 10/10/18 08:23> - General Chief Complaint: Dental Pain Time Seen by Provider: 10/09/18 14:28 Past Medical History - Provider Review Nursing Documentation Reviewed: Yes - Past History Past History: No Previous - Infectious Disease Hx of Infectious Diseases: None - Past Medical History Past Medical History: No Previous - Cardiac Hx Cardiac Disorders: No - Pulmonary Hx Respiratory Disorders: No - Neurological Hx Neurological Disorder: No - HEENT Hx HEENT Disorder: No - Renal Hx Renal Disorder: No - Endocrine/Metabolic Hx Endocrine Disorders: No - Hematological/Oncological Hx Blood Disorders: No - Integumentary Hx Dermatological Disorder: No - Musculoskeletal/Rheumatological Hx Falls: No - Gastrointestinal Hx Gastrointestinal Disorders: No - Genitourinary/Gynecological Hx Genitourinary Disorders: No - Psychiatric Hx Substance Use: Yes Other/Comment: etoh - Surgical History Hx Orthopedic Surgery: Yes - Anesthesia Hx Anesthesia: Yes Hx Anesthesia Reactions: No Hx Malignant Hyperthermia: No <Grant Saleh - Last Filed: 10/09/18 14:51> Family/Social History - Physician Review Nursing Documentation Reviewed: Yes Family/Social History: No Known Family HX Smoking Status: Heavy Smoker > 10 Cigarettes Daily Hx Alcohol Use: Yes Frequency of alcohol use: Daily Hx Substance Use: Yes Substance used: marijuana <Grant Saleh - Last Filed: 10/09/18 14:51> Allergies/Home Meds <Grant Saleh - Last Filed: 10/09/18 14:51> <Skip Rodriguez - Last Filed: 10/10/18 08:23> Allergies/Adverse Reactions: Allergies No Known Allergies Allergy (Verified 10/09/18 14:16) Home Medications: Home Meds Medication Instructions Recorded Confirmed RX: No Known Home Med 10/09/18 10/09/18 Review of Systems - Physician Review All systems were reviewed & negative as marked: Yes - Review of Systems Constitutional: Weight Change. absent: Fatigue, Fevers, Night Sweats Eyes: Normal ENT: Other (mouth pain) Respiratory: Normal. absent: SOB, Cough Cardiovascular: Normal. absent: Chest Pain, Palpitations Gastrointestinal: Normal. absent: Abdominal Pain, Diarrhea, Nausea, Vomiting Genitourinary Male: Normal. absent: Dysuria, Frequency Musculoskeletal: Normal. absent: Arthralgias, Back Pain Skin: Normal Neurological: Normal Endocrine: Normal Hemo/Lymphatic: Normal <Grant Saleh - Last Filed: 10/09/18 14:51> Physical Exam Vital Signs Reviewed: Yes Vital Signs Temp Pulse Resp BP Pulse Ox 10/09/18 14:12 98.5 F 89 18 121/83 100 Temperature: Afebrile Blood Pressure: Normal Pulse: Regular Respiratory Rate: Normal Appearance: Positive for: Well-Appearing, Non-Toxic, Comfortable Pain Distress: None Mental Status: Positive for: Alert and Oriented X 3 - Systems Exam Head: Present: Atraumatic, Normocephalic Pupils: Present: PERRL Extroacular Muscles: Present: EOMI Conjunctiva: Present: Normal Ears: Present: Normal Mouth: Present: Dry, Other (left posterior mandibular swelling, no open wound, no exudate). No: Drooling Pharnyx: Present: ERYTHEMA. No: EXUDATE, Peritonsilar Swelling, Uvular Deviation, Muffled/Hoarse Voice, Soft Palate/Uvular Edema Nose (External): Present: Atraumatic Nose (Internal): Present: Normal Inspection Neck: Present: Normal Range of Motion. No: Trachea Midline Respiratory/Chest: Present: Clear to Auscultation, Good Air Exchange. No: Respiratory Distress Cardiovascular: Present: Regular Rate and Rhythm, Normal S1, S2. No: Rub, Gallop Abdomen: Present: Normal Bowel Sounds. No: Tenderness Upper Extremity: Present: Normal Inspection. No: Cyanosis, Edema Lower Extremity: Present: Normal Inspection. No: Edema Neurological: Present: GCS=15, CN II-XII Intact Skin: Present: Warm, Normal Color. No: Rashes Lymphatic: Present: Cervical Adenopathy, Other (submandibular adenopathy) Psychiatric: Present: Alert, Oriented x 3 <Grant Saleh - Last Filed: 10/09/18 14:51> Vital Signs Temp Pulse Resp BP Pulse Ox 10/09/18 14:12 98.5 F 89 18 121/83 100 <Skip Rodriguez - Last Filed: 10/10/18 08:23> Medical Decision Making - Medication Orders Current Medication Orders: Vancomycin HCl (Vancomycin 1gm) 1 gm in 250 mls @ 167 mls/hr IVPB STAT STA; Protocol Stop: 10/09/18 16:11 Piperacillin Sod/Tazobactam Sod (Zosyn 3.375 In Ns 100ml) 100 mls @ 200 mls/hr IVPB STAT STA; Protocol Stop: 10/09/18 15:11 <Grant Saleh - Last Filed: 10/09/18 14:51> ED Course and Treatment: 10/09/18 17:36 pt seen with resident, s/p dental pain for last week. was admitted recently, signed out ama. recent ct and mri show phelgmon and possible osteo. pt returns today to complete his tx. case discussed with [facility] and er attending at [facility] accepted for er to er transfer. - Lab Interpretations Lab Results: PT 10.0 SECONDS (9.4-12.5) 10/09/18 15:05 INR 0.90 10/09/18 15:05 APTT 33.3 Seconds (26.9-38.3) 10/09/18 15:05 Total Bilirubin 0.2 mg/dL (0.2-1.3) 10/09/18 15:05 AST 39 U/L (17-59) 10/09/18 15:05 ALT < 6 U/L (7-56) L 10/09/18 15:05 Alkaline Phosphatase 80 U/L (38-126) 10/09/18 15:05 Total Protein 7.8 g/dL (5.8-8.3) 10/09/18 15:05 Albumin 4.4 g/dL (3.0-4.8) 10/09/18 15:05 Globulin 3.4 gm/dL 10/09/18 15:05 Albumin/Globulin Ratio 1.3 (1.1-1.8) 10/09/18 15:05 - Medication Orders Current Medication Orders: Discontinued Medications Acetaminophen (Tylenol 325mg Tab) 975 mg PO STAT STA Stop: 10/09/18 16:54 Last Admin: 10/09/18 17:20 Dose: 975 mg MAR Pain/Vitals Document 10/09/18 17:20 MR (Rec: 10/09/18 17:27 MR [id number]) Pain Reassessment Is This A Pain ReAssessment? Yes Sleep Is patient sleeping during reassessment? No Presence of Pain Presence of Pain Yes Pain Scale Used Protocol: PSCALES Pain Scale Used Numeric Location Left, Right or Bilateral Left Upper or Lower Lower Pain Location Body Site Jaw Description Constant Intensity 8 Scale Used Numeric Pain Behavior Irritability Alleviating Factors Medication Vancomycin HCl (Vancomycin 1gm) 1 gm in 250 mls @ 167 mls/hr IVPB STAT STA; Protocol Stop: 10/09/18 16:11 Last Admin: 10/09/18 17:19 Dose: 167 mls/hr eMAR Start Stop Document 10/09/18 17:19 MR (Rec: 10/09/18 17:20 MR [id number]) Intravenous Solution Start Date 10/09/18 Start Time 17:19 End Date 10/09/18 End time 18:49 Total Infusion Time 90 Piperacillin Sod/Tazobactam Sod (Zosyn 3.375 In Ns 100ml) 100 mls @ 200 mls/hr IVPB STAT STA; Protocol Stop: 10/09/18 15:11 Last Admin: 10/09/18 15:21 Dose: 200 mls/hr eMAR Start Stop Document 10/09/18 15:21 EWO (Rec: 10/09/18 15:21 EWO [id number]) Intravenous Solution Start Date 10/09/18 Start Time 15:21 End Date 10/09/18 End time 16:21 Total Infusion Time 60 Ketorolac Tromethamine (Toradol) 30 mg IVP STAT STA Stop: 10/09/18 16:54 Last Admin: 10/09/18 17:27 Dose: 30 mg MAR Pain Assessment Document 10/09/18 17:27 MR (Rec: 10/09/18 17:27 MR [id number]) Pain Reassessment Is this a pain reassessment? Yes Sleep Is patient sleeping during reassessment? No Presence of Pain Presence of Pain Yes Pain Scale Used Protocol: PSCALES Pain Scale Used Numeric Location Left, Right or Bilateral Left Upper or Lower Lower Pain Location Body Site Jaw Description Description Constant Intensity of Pain at present 8 Pain Behavior Irritability Alleviating Factors/Management Medication Techniques Elevation Alleviating Factors Medication IVP Administration Document 10/09/18 17:27 MR (Rec: 10/09/18 17:27 MR [id number]) Charges for Administration # of IVP Administrations 1 <Skip Rodriguez - Last Filed: 10/10/18 08:23> Disposition/Present on Arrival - Present on Arrival Any Indicators Present on Arrival: No History of DVT/PE: No History of Uncontrolled Diabetes: No Urinary Catheter: No History of Decub. Ulcer: No History Surgical Site Infection Following: None - Disposition Have Diagnosis and Disposition been Completed?: Yes Patient Plan: Admission <Grant Saleh - Last Filed: 10/09/18 14:51> - Present on Arrival Any Indicators Present on Arrival: No - Disposition Have Diagnosis and Disposition been Completed?: Yes Disposition Time: 20:00 <kSip Rodriguez - Last Filed: 10/10/18 08:23> - Disposition Diagnosis: Facial pain, Dental abscess Disposition: HOSPITALIZED Condition: FAIR Referrals: PCP,NO [Primary Care Provider] - Follow up with primary Forms: [employer] (Telugu)
[2018-10-09 15:31] LABS: BASO # 0.07 K/mm3 (0.0-2.0); BASO % 0.5 % (0.0-3.0); EOS # 0.4 (0.0-0.7); EOS % 2.8 % (1.5-5.0); HEMOGLOBIN 15.8 g/dL (14.0-18.0); LYMPH # 3.1 (1.2-3.4); LYMPH % 21.4 % (22.0-35.0); MEAN CELL VOLUME 94.1 fl (80.0-105.0); MEAN CORPUSCULAR HEMOGLOBIN 33.2 pg (25.0-35.0); MEAN CORPUSCULAR HGB CONC 35.3 g/dl (31.0-37.0); MEAN PLATELET VOLUME 9.2 fl (7.0-11.0); MONO % 6.8 % (1.0-6.0); RBC 4.76 10^6/uL (3.5-6.1); RED CELL DISTRIBUTION WIDTH 12.3 % (11.5-14.5); WHITE BLOOD COUNT 14.6 10^3/uL (4.5-11.0)
[2018-10-09 15:33] LABS: INR 0.9; PARTIAL THROMBOPLASTIN TIME 33.3 Seconds (26.9-38.3)
[2018-10-09 16:06] LABS: ALB/GLOB RATIO 1.3 (1.1-1.8); ALBUMIN 4.4 g/dL (3.0-4.8); ALT/SGPT < 6 U/L (7-56); AST/SGOT 39 U/L (17-59); BLOOD UREA NITROGEN 11 mg/dL (7-21); CALCIUM 10.3 mg/dL (8.4-10.5); GFR NON-AFRICAN AMERICAN > 60
[2018-10-09 16:09] LABS: BARBITURATES, UR NEGATIVE (NEGATIVE); BENZODIAZEPINES, UR NEGATIVE (NEGATIVE); OPIATES, UR NEGATIVE (NEGATIVE); PHENCYCLIDINE, UR NEGATIVE (NEGATIVE)
[2018-10-09 20:09] VITALS: BP 114/63; PULSE 80; RESP 18; TEMP 98; O2SAT 100
== END 2018-10-09 20:29 | disposition short-term general hospital (02) ==
LOC: ED 13:37
DX: K04.7 Periapical abscess without sinus (principal); R51 Headache; F17.210 Nicotine dependence, cigarettes, uncomplicated
CPT/HCPCS: 80053; 80320; 80324; 80345; 80346; 80349; 80353; 80358; 80361; 83992; 85025; 85610; 85651; 85730; 87040; 96365; 96367; 96375; 99283; J1885; J2543